=== PATIENT | female | born 1995 | race Caucasian/White ===

== ENCOUNTER 2020-08-23 11:23 | Emergency (ER) | payer OTHER, SELFPAY ==
--- NOTE | ~2020-08-23 | CT_ITS ---
EXAMINATION: CT ABDOMEN AND PELVIS WITH CONTRAST CLINICAL INFORMATION: Left lower quadrant abdominal pain with watery diarrhea for one to 2 months COMPARISON: Abdominal MRI 03/01/2014, abdominal CT 10/25/2011 TECHNIQUE: Multidetector volumetric images were obtained from the superior aspect of the liver through the pubic symphysis following administration 85 mL of Omnipaque 350 intravenous contrast. Sagittal and coronal reformatted images were obtained on the technologist's workstation. Oral contrast: No This CT examination was performed using dose optimization techniques as appropriate, variously including the following: *Automated exposure control *Adjustment of mA and/or kV according to patient size (this includes techniques or standardized protocols for targeted exams where dose is matched to indication/reason for exam; i.e. extremities or head) *Use of iterative reconstruction technique DLP: 284 mGy-cm FINDINGS: LUNG BASES: The visualized lung bases are unremarkable. LIVER, GALLBLADDER, AND BILIARY TREE: The liver is normal in size, shape, and attenuation. No focal hepatic lesion or biliary ductal dilatation is present. Status post cholecystectomy. There is a clip in the presacral recess, likely a dropped cholecystectomy clip. PANCREAS: Unremarkable. SPLEEN: Unremarkable. ADRENAL GLANDS: Unremarkable. KIDNEYS AND URETERS: The kidneys are normal in size, shape, and attenuation. No hydronephrosis, hydroureter, or calculi seen. No perinephric stranding. Few scattered tiny well-defined renal cortical hypodensities, a nonspecific finding but statistically most likely representing renal cysts. BLADDER: Unremarkable. GASTROINTESTINAL TRACT: The small and large bowel are unremarkable. The appendix is unremarkable. ABDOMINAL WALL: No significant hernia is appreciated. LYMPH NODES: No lymphadenopathy within the abdomen or pelvis by CT criteria. VASCULAR: No abdominal aortic aneurysm. The IVC is singular and right-sided. Large dilated gonadal veins bilaterally with periuterine varicosities, left greater than right. PELVIC VISCERA: The uterus is retroflexed with prominent periuterine varicosities. OSSEOUS STRUCTURES: No acute or suspicious osseous abnormality. CT/CT abdomen pelvis w con IMPRESSION: 1. No evidence of acute abnormality within the abdomen or pelvis. 2. Markedly dilated gonadal veins bilaterally with prominent periuterine varices, left greater than right. This can be a source of chronic pelvic pain, associated with pelvic congestion syndrome. This can be treated minimally invasively with coil embolization by interventional radiology. 3. Cholecystectomy.
[2020-08-23 11:45] VITALS: BP 99/66; PULSE 98; RESP 18; TEMP 36.4; O2SAT 100; BMI 18.8
--- NOTE | 2020-08-23 12:45 | ED.NAVMDI ---
HPI - Nausea/Vomiting/Diarrhea General Chief complaint: Nausea/Vomiting/Diarrhea Stated complaint: DIARRHEA Time Seen by Provider: 08/23/20 11:35 Source: patient Mode of arrival: ambulatory Limitations: no limitations History of Present Illness HPI Narrative: 25-year-old female with no significant past medical history with a past surgical history of a cholecystectomy presenting to the ED with complaints of watery diarrhea for the past 2 months with lower abdominal pain with associated nausea no vomiting. Patient reports she is having approximately 4-5 stools daily. Denies any fevers, chills, chest pain, shortness of breath, back pain, hematuria, dysuria, abnormal vaginal discharge, black or bloody stools or constipation. Denies recent travel or sick contacts. Denies recent antibiotic usage or hospitalizations. MD elicited complaint: nausea, diarrhea and abdominal pain Onset (ago): month(s) (Daily for the past 2 months) Description of diarrhea: mucus and watery Associated nausea: Yes Associated abdominal pain: Yes Location of pain: other (Lower abdomen) Pain consistency: intermittent Severity: mild Quality: cramping Exacerbating factors: bowel movement Relieving factors: none Associated symptoms: nausea/vomiting Treatment prior to arrival: none Related Data Previous Rx's Medication Instructions Recorded nitrofurantoin monohyd/m-cryst 100 mg PO BID 7 Days #14 cap 08/23/20 [Macrobid] Allergies Allergy/AdvReac Type Severity Reaction Status Date / Time No Known Allergies Allergy Unverified 01/10/20 16:54 [No Known Allergies*] Review of Systems Review of Systems: Constitutional : No Fever, No Chills, No Night Sweats, No Fatigue, No Malaise Cardiovascular : No Chest Pain, No SOB Respiratory : No Cough, No Sputum, No Wheezing, No Dyspnea Gastrointestinal : + Nausea, + Diarrhea, + abdominal Pain, No Vomiting, No Hematochezia, No Melena Genitourinary : No irregular bleeding, No Dysuria, No Urinary Frequency, No Hematuria,No Urinary Incontinence, No Urgency, No Flank Pain Musculoskeletal : No joint pain, No Myalgias, No Joint Swelling Skin : No Skin Lesions, No rash Neuro : No Weakness, No Numbness, No Paresthesias, No Loss of Consciousness, No Dizziness, No Headache Heme/Lymph: No Lymphadenopathy Endocrine : No Temperature Intolerance Yes all other systems are reviewed and are negative Gastrointestinal: Gastrointestinal: Reports nausea PMFSH Past Medical History Attestation statement: The following information was validated with the patient. Surgical History History of cholecystectomy Social History Social History Advance Directives: No Advance Directives Information Provided: No Physical Exam Vital Signs: Vital Signs: Last Vital Signs Temp 97.6 F 08/23/20 11:45 Pulse 67 08/23/20 14:08 Resp 14 08/23/20 14:08 BP 92/54 L 08/23/20 14:08 Pulse Ox 100 08/23/20 14:08 Body Mass Index 18.8 vital signs have been reviewed as normal and appeared to be correct. Blood pressure hypotensive at 99/66. Heart rate normal. Respiration rate normal. Temperature normal. Oxygen saturation normal. Appearance: Alert. Oriented X3. No acute distress. Head: Normal external exam. Normocephalic. Eyes: PERRLA. EOMI. Conjunctiva and sclera normal. Eyelids normal. ENT: Pharynx normal. Uvula midline. Moist mucous membranes. Neck: Normal inspection. Neck supple. FROM. No adenopathy. No meningeal signs. CVS: Normal heart rate and rhythm. Heart sound normal. No murmurs noted. Pulses normal throughout. Respiratory: No respiratory distress. Painless inspiration. Breath sounds normal. No wheezes/rales/rhonchi noted. Chest nontender. No accessory muscle usage noted or decreased air movement noted. Abdomen: Soft and mild tenderness in the lower abdomen. Nondistended. No guarding. No rigidity. Bowel sounds normal in all 4 quadrants. No distention noted. No organomegaly noted. No visible injury noted. No rebound tenderness. Negative Rovsing sign. Negative obturator's sign. Negative psoas sign. Negative Mckeon sign. Back: No CVA tenderness. Full range of motion noted. Skin: Skin warm and dry. Normal skin color. Normal skin turgor. No rashes/lesions/lacerations noted. Extremities: Extremities exhibit normal range of motion. Extremities nontender. Neuro: Oriented X 3. No motor deficit. No sensory deficit. Reflexes normal. Normal steady gait. Course Course Course Narrative: 16pm - labs reviewed and patient with mild elevation in alkaline phosphate 128 otherwise all other labs are within normal limits. UA positive for nitrates. UHCG is negative for . - CT scan of abdomen and pelvis revealed IMPRESSION: 1. No evidence of acute abnormality within the abdomen or pelvis. 2. Markedly dilated gonadal veins bilaterally with prominent periuterine varices, left greater than right. This can be a source of chronic pelvic pain, associated with pelvic congestion syndrome. This can be treated minimally invasively with coil embolization by interventional radiology. 3. Cholecystectomy. - therefore will DC home with antibiotics for UTI and instructions to follow-up with OBGYN. Patient understands agrees with this plan. MDM - Nausea/Vomiting/Diarrhea MDM Narrative Medical decision making narrative: 12pm - 25-year-old female presenting to the ED with complaints of diarrhea for the past 2 months with associated nausea and lower abdominal pain. Denied any other symptoms complaints or concerns at this time. On exam patient has mild suprapubic abdominal tenderness. No distension. Not consistent with acute abdomen. No CVA tenderness is noted. - will obtain labs, UA, UHCG, CT scan of abdomen pelvis with IV contrast then possibly test the patient's stool for C diff if she has a bowel movement here then re-evaluate. Medical Records Attestation: I reviewed the patient's medical records. Lab Data Attestation: I reviewed the patient's lab results. Result diagrams: 08/23/20 12:43 08/23/20 12:43 Labs: Lab Results 08/23/20 08/23/20 08/23/20 Range/Units 12:43 12:43 12:43 WBC 9.0 (4.8-10.8) X10*3/uL RBC 4.75 (4.20-5.50) X10*6/uL Hgb 14.1 (12.0-16.0) g/dl Hct 41.6 (37-47) % MCV 87.6 (80-98) fL MCH 29.7 (27.0-33.0) pg MCHC 33.9 (31.0-35.0) g/dl RDW 12.3 (11.0-16.0) % Plt Count 266 (160-400) X10*3/uL MPV 10.4 (9.4-12.3) fL Immature Gran % (Auto) 0.2 (0.0-0.4) % Neut % (Auto) 48.9 (45-73) % Lymph % (Auto) 34.4 (20-40) % [place] % (Auto) 10.2 (2-11) % Eos % (Auto) 5.6 H (0-4) % Baso % (Auto) 0.7 (0-2) % Lymph # (Auto) 3.1 (1.2-4.9) X10*3/uL [place] # (Auto) 0.9 (0.1-1.2) X10*3/uL Eos # (Auto) 0.5 H (0.0-0.4) X10*3/uL Baso # (Auto) 0.1 (0.0-0.2) X10*3/uL Abs Immat Gran (auto) 0.02 (0.00-0.03) X10*3/uL Absolute Neuts (auto) 4.4 (2.0-8.3) X10*3/uL Absolute Nucleated RBC 0.000 (0.0-0.012) X10*3/uL Nucleated RBC % (auto) 0.0 (0.0-0.2) /100WBC PT 13.9 H (10.8-13.0) SEC INR 1.2 H (0.9-1.1) Sodium (135-145) mmol/L Potassium (3.3-5.1) mmol/L Chloride (96-108) mmol/L Carbon Dioxide (22-29) mmol/L Anion Gap (12-20) BUN (9-16) mg/dL Creatinine (0.5-1.4) mg/dL Estim Creat Clear Calc Estimated GFR Random Glucose (60-115) mg/dL Calcium (8.4-10.2) mg/dL Magnesium 2.0 (1.6-2.6) mg/dL Total Bilirubin 0.6 (0.0-1.0) mg/dL Direct Bilirubin 0.2 (0.0-0.5) mg/dL AST 18 (5-31) U/L ALT 17 (0-31) U/L Alkaline Phosphatase 124 H (39-117) U/L Total Protein 7.0 (6.5-8.0) g/dL Albumin 4.4 (3.5-5.0) g/dL Lipase (8-78) U/L Urine Color Urine Appearance Urine pH (5.0-8.0) Ur Specific [place] (1.005-1.025) Urine Protein (NEG-TRACE) MG/DL Urine Glucose (UA) (NEG) MG/DL Urine Ketones (NEG) MG/DL Urine Blood (NEG) Urine Nitrite (NEG) Ur Leukocyte Esterase (NEG) Urine RBC (0) /HPF Urine WBC (0-4) /HPF Ur Squamous Epith Cells /LPF Urine Bacteria /LPF Urine Mucus /LPF Urine Test (NEGATIVE) 08/23/20 08/23/20 08/23/20 Range/Units 12:43 14:11 14:11 WBC (4.8-10.8) X10*3/uL RBC (4.20-5.50) X10*6/uL Hgb (12.0-16.0) g/dl Hct (37-47) % MCV (80-98) fL MCH (27.0-33.0) pg MCHC (31.0-35.0) g/dl RDW (11.0-16.0) % Plt Count (160-400) X10*3/uL MPV (9.4-12.3) fL Immature Gran % (Auto) (0.0-0.4) % Neut % (Auto) (45-73) % Lymph % (Auto) (20-40) % [place] % (Auto) (2-11) % Eos % (Auto) (0-4) % Baso % (Auto) (0-2) % Lymph # (Auto) (1.2-4.9) X10*3/uL [place] # (Auto) (0.1-1.2) X10*3/uL Eos # (Auto) (0.0-0.4) X10*3/uL Baso # (Auto) (0.0-0.2) X10*3/uL Abs Immat Gran (auto) (0.00-0.03) X10*3/uL Absolute Neuts (auto) (2.0-8.3) X10*3/uL Absolute Nucleated RBC (0.0-0.012) X10*3/uL Nucleated RBC % (auto) (0.0-0.2) /100WBC PT (10.8-13.0) SEC INR (0.9-1.1) Sodium 140 (135-145) mmol/L Potassium 4.2 (3.3-5.1) mmol/L Chloride 107 (96-108) mmol/L Carbon Dioxide 21 L (22-29) mmol/L Anion Gap 16 (12-20) BUN 15 (9-16) mg/dL Creatinine 0.80 (0.5-1.4) mg/dL Estim Creat Clear Calc 68.0 Estimated GFR > 60 Random Glucose 73 (60-115) mg/dL Calcium 9.3 (8.4-10.2) mg/dL Magnesium (1.6-2.6) mg/dL Total Bilirubin 0.6 (0.0-1.0) mg/dL Direct Bilirubin (0.0-0.5) mg/dL AST 18 (5-31) U/L ALT 15 (0-31) U/L Alkaline Phosphatase 128 H (39-117) U/L Total Protein 7.2 (6.5-8.0) g/dL Albumin 4.5 (3.5-5.0) g/dL Lipase 28 (8-78) U/L Urine Color YELLOW Urine Appearance HAZY Urine pH 6.0 (5.0-8.0) Ur Specific [place] 1.025 (1.005-1.025) Urine Protein NEG (NEG-TRACE) MG/DL Urine Glucose (UA) 100 H (NEG) MG/DL Urine Ketones 5 (NEG) MG/DL Urine Blood NEG (NEG) Urine Nitrite POS H (NEG) Ur Leukocyte Esterase NEG (NEG) Urine RBC 0 (0) /HPF Urine WBC 1-4 (0-4) /HPF Ur Squamous Epith Cells 1+ /LPF Urine Bacteria 2+ /LPF Urine Mucus 3+ /LPF Urine Test NEGATIVE (NEGATIVE) Imaging Data CT scan of abdomen pelvis with IV contrast: Attestation: I personally reviewed and interpreted this imaging study as follows: Radiologist's impression: IMPRESSION: 1. No evidence of acute abnormality within the abdomen or pelvis. 2. Markedly dilated gonadal veins bilaterally with prominent periuterine varices, left greater than right. This can be a source of chronic pelvic pain, associated with pelvic congestion syndrome. This can be treated minimally invasively with coil embolization by interventional radiology. 3. Cholecystectomy. Discharge Plan Discharge Clinical Impression: UTI (urinary tract infection), Diarrhea, Pelvic congestion syndrome Patient Disposition: Home, Self-Care Instructions: Urinary Tract Infection in Women (ED) Additional Instructions: I gave you an outpatient lab slip for C diff culture please when you have this watery diarrhea placed in the cup and bring it back to the hospital with the slip that I gave you above. Follow-up with OBGYN I gave you the number below and return if any new or worsening symptoms. Prescriptions: New nitrofurantoin monohyd/m-cryst [Macrobid] 100 mg capsule 100 mg PO BID 7 Days Qty: 14 RF: 0 Referrals: Karla Turcios MD [Physician] - 2 days Print Language: Maltese
[2020-08-23 12:50] LABS: MANUAL DIFF FLAG NO
[2020-08-23 12:51] LABS: Basophils Absolute Auto 0.1 X10*3/uL (0.0-0.2); Basophils Percent Auto 0.7 % (0-2); Eosinophils Absolute Auto 0.5 X10*3/uL (0.0-0.4); Eosinophils Percent Auto 5.6 % (0-4); Hematocrit 41.6 % (37-47); Hemoglobin 14.1 g/dl (12.0-16.0); Imm Gran Abs Auto 0.02 X10*3/uL (0.00-0.03); Imm Gran Pct Auto 0.2 % (0.0-0.4); Lymphocytes Absolute Auto 3.1 X10*3/uL (1.2-4.9); Lymphocytes Percent Auto 34.4 % (20-40); Mean Corpuscular HGB Conc 33.9 g/dl (31.0-35.0); Mean Corpuscular Hemoglobin 29.7 pg (27.0-33.0); Mean Corpuscular Volume 87.6 fL (80-98); Mean Platelet Volume 10.4 fL (9.4-12.3); Monocytes Absolute Auto 0.9 X10*3/uL (0.1-1.2); Monocytes Percent Auto 10.2 % (2-11); Neutrophils Absolute Auto 4.4 X10*3/uL (2.0-8.3); Neutrophils Percent Auto 48.9 % (45-73); Platelet Count 266 X10*3/uL (160-400); Red Blood Count 4.75 X10*6/uL (4.20-5.50); Red Cell Distribution Width 12.3 % (11.0-16.0)
[2020-08-23 12:57] LABS: INTERNATIONAL NORM RATIO 1.2 (0.9-1.1); Prothrombin Time 13.9 SEC (10.8-13.0)
[2020-08-23] MEDS: 0.9 % Sodium Chloride 1,000 ML 999 ML IVCONT (13:01)
[2020-08-23 13:17] LABS: Alanine Aminotransferase 17 U/L (0-31); Albumin Level 4.4 g/dL (3.5-5.0); Alkaline Phosphatase 124 U/L (39-117); Aspartate Amino Transferase 18 U/L (5-31); Bilirubin Direct 0.2 mg/dL (0.0-0.5); Bilirubin Total 0.6 mg/dL (0.0-1.0)
[2020-08-23 13:19] LABS: Alanine Aminotransferase 15 U/L (0-31); Albumin Level 4.5 g/dL (3.5-5.0); Alkaline Phosphatase 128 U/L (39-117); Anion Gap 16 (12-20); Aspartate Amino Transferase 18 U/L (5-31); Bilirubin Total 0.6 mg/dL (0.0-1.0); Blood Urea Nitrogen 15 mg/dL (9-16); Calcium 9.3 mg/dL (8.4-10.2); Carbon Dioxide 21 mmol/L (22-29); Chloride 107 mmol/L (96-108); Estimated Glomerular Filt Rate > 60; Glucose Random 73 mg/dL (60-115); Lipase 28 U/L (8-78); Potassium 4.2 mmol/L (3.3-5.1); Sodium 140 mmol/L (135-145); Total Protein 7.2 g/dL (6.5-8.0)
[2020-08-23 14:08] VITALS: BP 92/54; PULSE 67; RESP 14; O2SAT 100
[2020-08-23 14:19] LABS: Glucose Urine UA 100 MG/DL (NEG); Leukocyte Esterase Urine NEG (NEG); Nitrite Urine POS (NEG); Specific Gravity - Urine 1.025 (1.005-1.025); UACC Culture Trigger YES; Urine Blood NEG (NEG); Urine Ketones 5 MG/DL (NEG); Urine Protein NEG (NEG-TRACE)
[2020-08-23 14:21] LABS: UPreg QC Valid YES; Urine Pregnancy NEGATIVE (NEGATIVE)
[2020-08-23 14:22] LABS: Appearance Urine HAZY; Color Urine YELLOW
[2020-08-23 14:29] LABS: Bacteria Urine 2+ /LPF; Mucus Urine 3+ /LPF; RBC Urine 0 /HPF (0); Squamous Epithelial Cell Urine 1+ /LPF
[2020-08-23] MEDS: iohexoL 350 MG/ML 100 ML INFUS..BTL IV (14:58)
[2020-08-23 16:02] VITALS: BP 110/79; PULSE 80; RESP 20; TEMP 36.7; O2SAT 99
== END 2020-08-23 16:36 | disposition home or self-care (01) ==
PROVIDERS: Physician Assistant Medical; Emergency Provider Emergency Medicine
DX: N39.0 Urinary tract infection, site not specified (principal); R19.7 Diarrhea, unspecified; R25.2 Cramp and spasm; N94.89 Other specified conditions associated with female genital organs and menstrual cycle; Z79.899 Other long term (current) drug therapy
CPT/HCPCS: 36415; 74177; 80053; 80076; 81001; 81003; 81025; 82248; 83690; 83735; 85025; 85610; 87086; 87088; 87186; 99284; Q9967

== ENCOUNTER 2020-08-24 11:53 | Outpatient (REF) | payer OTHER, SELFPAY | END 2020-08-24 11:54 | disposition home or self-care (01) | LOC: HO.LNP 11:53 | PROVIDERS: Visit Provider Physician Assistant Medical | DX: Z13.89 Encounter for screening for other disorder (principal) ==

== ENCOUNTER 2021-08-31 15:26 | Emergency (ER) | payer OTHER, SELFPAY ==
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
[2021-08-31 16:12] VITALS: BP 129/84; PULSE 108; RESP 18; TEMP 36.6; O2SAT 99; BMI 19.8
[2021-08-31 18:22] VITALS: BP 109/73; PULSE 86; RESP 16; TEMP 36.9; O2SAT 100
[2021-08-31] MEDS: Acetaminophen 325 MG TABLET 975 MG PO (19:00)
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
== END 2021-08-31 20:26 | disposition home or self-care (01) ==
PROVIDERS: Emergency Provider Internal Medicine
DX: S80.11XA Contusion of right lower leg, initial encounter (principal); M54.2 Cervicalgia; V49.40XA Driver injured in collision with unspecified motor vehicles in traffic accident, initial encounter; Y93.9 Activity, unspecified; Y92.410 Unspecified street and highway as the place of occurrence of the external cause; Y99.9 Unspecified external cause status
CPT/HCPCS: 70450; 72125; 73590; 99284

== ENCOUNTER → 2022-01-06 14:48 | Outpatient (BNVA) | payer OTHER, SELFPAY | PROVIDERS: Visit Provider Physician Assistant Medical | DX: T65.891A Toxic effect of other specified substances, accidental (unintentional), initial encounter (principal); L24.5 Irritant contact dermatitis due to other chemical products | CPT/HCPCS: 99202 ==

== ENCOUNTER → 2022-01-11 11:39 | Outpatient (BNVA) | payer OTHER, SELFPAY | PROVIDERS: Visit Provider Physician Assistant Medical | DX: T65.891A Toxic effect of other specified substances, accidental (unintentional), initial encounter (principal); L24.5 Irritant contact dermatitis due to other chemical products | CPT/HCPCS: 99213 ==

== ENCOUNTER → 2022-01-18 13:10 | Outpatient (BNVA) | payer OTHER, SELFPAY | PROVIDERS: Visit Provider Internal Medicine | DX: T65.891A Toxic effect of other specified substances, accidental (unintentional), initial encounter (principal); L24.5 Irritant contact dermatitis due to other chemical products | CPT/HCPCS: 99213 ==

== ENCOUNTER 2022-02-10 17:49 | Emergency (ER) | payer OTHER, SELFPAY ==
--- NOTE | ~2022-02-10 | XR_ITS ---
EXAMINATION: XR CHEST CLINICAL INFORMATION: Cough COMPARISON: RIBS and chest 11/21/2012 TECHNIQUE: Frontal view of the chest was obtained. FINDINGS: No significant abnormality is noted involving the heart, lungs, mediastinum, bony thorax or soft tissues. XR/XR chest 1V IMPRESSION: Unremarkable examination.
[2022-02-10 17:58] VITALS: BP 114/84; PULSE 106; RESP 16; TEMP 36.2; O2SAT 97; BMI 19.4
[2022-02-10 18:38] LABS: COVID-19 Test Negative (Negative); IDNOW Serial# 55D5AD1C; IDNOW Serial# 9DB6401D; Influenza A Negative (Negative); Influenza B2 Negative (Negative)
--- NOTE | 2022-02-10 20:01 | ED.SOB ---
HPI - SOB/Dyspnea General Chief Complaint: Dyspnea Stated Complaint: sob, cough Time Seen by Provider: 02/10/22 20:00 Source: patient Mode of arrival: ambulatory Limitations: no limitations History of Present Illness HPI Narrative: 18-year-old female presents to the ER for evaluation of 4 days of cough and shortness of breath that has been worsening. She states her son had a slight cough a few days ago but it was much different from hers and is already self resolved. She states the cough has been keeping her up at night and she bringing up some white phlegm. She feels very fatigued and weak. She is eating and drinking normally but generally feels unwell. She denies any fevers or chills but does have some body aches. She is intermittently nauseous but no vomiting or diarrhea. MD elicited complaint: shortness of breath and cough Onset (ago): day(s) (4) Context: recent illness Timing: constant and progressively worsening Severity: moderate Exacerbating factors: lying flat, exertion and coughing Relieving factors: rest and medication Associated symptoms: cough, wheezing, chest congestion and lightheadedness Treatment prior to arrival: none Related Data Home oxygen amount: none Previous Rx's Medication Instructions Recorded nitrofurantoin 100 mg PO BID 7 days #14 caps 08/23/20 monohydrate/macrocrystals 100 mg capsule (Macrobid) naproxen 500 mg tablet 500 mg PO BID PRN pain 10 days #20 08/31/21 tabs albuterol sulfate 90 mcg/actuation 1 inh inhalation QID PRN shortness 02/10/22 aerosol inhaler of breath or wheezing #6.7 grams azithromycin 250 mg tablet See Rx Instructions PO .COMPLEX #6 02/10/22 (Zithromax Z-Karlo) tabs hydrocodone-homatropine 5 mg-1.5 5 ml PO Q6H PRN cough #60 mL 02/10/22 mg/5 mL (5 mL) oral syrup (Hycodan) prednisone 20 mg tablet 40 mg PO DAILY #10 tabs 02/10/22 Allergies Allergy/AdvReac Type Severity Reaction Status Date / Time No Known Allergies Allergy Verified 08/31/21 16:16 [No Known Allergies*] Review of Systems Review of Systems: Constitutional: No Fever, No Chills ENT/Mouth: No sore throat, No Rhinorrhea, No Swallowing Difficulty Eyes: No Eye Pain, No Swelling, No Redness Cardiovascular: No Chest Pain, + SOB, No Orthopnea, No Edema Respiratory: + Cough, + Sputum, +Wheezing, + dyspnea Gastrointestinal: No Nausea, No Vomiting, No Diarrhea, No abdominal Pain Genitourinary: No Dysuria, No Urinary Frequency Musculoskeletal: No joint pain, + Myalgias Skin: No Skin Lesions, No rash Neuro: No Weakness, No Numbness, No Dizziness, + Headache Heme/Lymph: No Lymphadenopathy [facility] Past Medical History Surgical History History of cholecystectomy Social History Social History Advance Directives: No Physical Exam Vital Signs: Vital Signs: Last Vital Signs Temp 97.1 F 02/10/22 17:58 Pulse 106 H 02/10/22 20:27 Resp 16 02/10/22 20:27 BP 114/84 02/10/22 17:58 Pulse Ox 97 02/10/22 17:58 O2 Del Method 02/10/22 17:58 BMI result Body Mass Index 19.4 Appearance: Alert. Oriented X3. Appears ill but nontoxic. Eyes: Pupils equal, round and reactive to light. ENT: Pharynx normal. Neck: Normal inspection. Neck supple. CVS: Normal heart rate and rhythm. Pulses normal. Respiratory: No respiratory distress. Breath sounds with diffuse inspiratory and expiratory wheezes throughout. Able to speak in complete sentences. Abdomen: Soft and nontender. +BS x4 Skin: Skin warm and dry. Normal skin color. Normal skin turgor. No rashes. Extremities: No lower extremity edema. No calf tenderness. Neuro: Oriented X 3. Grossly normal, nonfocal Course Course Course Narrative: 26-year-old female with no significant medical history presents to the ER with 4 days of worsening cough and shortness of breath. On examination she has diffuse wheezes throughout. She is not working to breathe and is oxygenating well. No history of asthma. Most likely reactive airway disease. Will check chest x-ray, COVID swab, flu swab. Will treat her with prednisone and albuterol nebulizer now and reassess. Reevaluation(s) Reevaluation #1: Significant improvement in aeration after nebulizer treatment. Chest x-ray is clear and viral swabs are negative. Most likely another viral etiology of her symptoms. She is stable for discharge home with antitussive, prednisone, p.r.n. albuterol and supportive care. Stable for discharge home. Work note provided per request. MDM - SOB/Dyspnea Lab Data Labs: Lab Results 02/10/22 02/10/22 Range/Units 18:07 18:07 COVID-19 (MATA) Negative (Negative) COVID-19 Clin Com See Note Influenza Type A ([facility]) Negative (Negative) Influenza Type B ([facility]INO) Negative (Negative) Influenza A & B Note See Note Discharge Plan Discharge Clinical Impression: Viral URI with cough Patient Disposition: Home, Self-Care Instructions: Upper Respiratory Infection (ED) Additional Instructions: Your chest x-ray was negative for pneumonia. You tested negative for COVID-19 and influenza A& B. Given the wheezing on exam today recommend treatment with prednisone 40 mg per day for the next 5 days, start taking 1st thing in the morning. Use the prescribed inhaler as needed for shortness of breath and wheezing. Take the prescribed cough medication as needed, do not drive after taking this medication can make you sleepy. Recommend taking the prescribed antibiotic for your lungs, it will help decrease the inflammation. Rest and stay hydrated. Recommend wrzj-[id number] cold and flu medications as needed for your symptoms. If you develop new or worsening symptoms call 911 or come back to the ER for further evaluation. Prescriptions: New prednisone 20 mg tablet 40 mg PO DAILY Qty: 10 0RF azithromycin [Zithromax Z-Karlo] 250 mg tablet See Rx Instructions .ROUTE .COMPLEX Qty: 6 0RF Rx Instructions: take 500 mg today (day 1), then 250 mg for 4 days (days 2-5) albuterol sulfate 90 mcg/actuation HFA aerosol inhaler 1 inh inhalation QID PRN (Reason: shortness of breath or wheezing) Qty: 6.7 0RF hydrocodone-homatropine [Hycodan] 5-1.5 mg/5 mL (5 mL) syrup 5 ml PO Q6H PRN (Reason: cough) Qty: 60 0RF Rx Instructions: Partial Fill upon patient request. No Action nitrofurantoin monohyd/m-cryst [Macrobid] 100 mg capsule 100 mg PO BID 7 Days Qty: 14 0RF Rx Instructions: must administer with a meal/food naproxen 500 mg tablet 500 mg PO BID PRN (Reason: pain) 10 Days Qty: 20 0RF Stand Alone Forms: Work/School Release
[2022-02-10] MEDS: Albuterol Sulfate 2.5 MG, Albuterol Sulfate (0.083%) 2.5 MG 5 MG INHALE (20:23)
[2022-02-10 20:27] VITALS: PULSE 106; RESP 16; O2SAT 97
[2022-02-10] MEDS: predniSONE 5 MG TABLET 40 MG PO (20:27)
[2022-02-10] MEDS: guaiFENesin DM 200/20/10 ML 10 ML SYRUP PO (20:27)
== END 2022-02-10 21:28 | disposition home or self-care (01) ==
PROVIDERS: Emergency Provider Emergency Medicine
DX: J06.9 Acute upper respiratory infection, unspecified (principal); R05.9 Cough, unspecified; Z20.822 Contact with and (suspected) exposure to COVID-19
CPT/HCPCS: 71045; 87502; 87635; 94640; 99283; 99284

== ENCOUNTER → 2022-08-27 16:05 | Outpatient (BNVA) | payer OTHER, SELFPAY | PROVIDERS: Visit Provider Physician Assistant | DX: L25.9 Unspecified contact dermatitis, unspecified cause (principal) | CPT/HCPCS: 99203 ==

== ENCOUNTER 2023-09-27 23:43 | Emergency (ER) | payer BC, SELFPAY ==
[2023-09-27 23:49] VITALS: BP 117/79; PULSE 100; RESP 17; TEMP 36.5; O2SAT 100; BMI 19.9
--- NOTE | 2023-09-28 01:11 | ED_ITS ---
HPI - Female Genitourinary General Chief complaint: Urogenital-Female Stated complaint: ? UTI Time Seen by Provider: 09/28/23 01:04 Source: patient Mode of arrival: ambulatory Limitations: no limitations History of Present Illness ED Provider: Dr. Mamie Greene HPI Narrative: Patient comes to the emergency room complaining of dysuria and suprapubic pressure for 1 week. Patient denies fever chills, no flank pain. Patient states that she tried managing the UTI at home with [id number] medications but did not have any effect. Related Data Previous Rx's ?Medication ?Instructions ?Recorded nitrofurantoin 100 mg PO BID 7 days #14 caps 08/23/20 monohydrate/macrocrystals 100 mg capsule (Macrobid) naproxen 500 mg tablet 500 mg PO BID PRN pain 10 days #20 08/31/21 tabs albuterol sulfate 90 mcg/actuation 1 inh inhalation QID PRN shortness 02/10/22 aerosol inhaler of breath or wheezing #6.7 grams azithromycin 250 mg tablet See Rx Instructions PO .COMPLEX #6 02/10/22 (Zithromax Z-Karlo) tabs hydrocodone-homatropine 5 mg-1.5 5 ml PO Q6H PRN cough #60 mL 02/10/22 mg/5 mL (5 mL) oral syrup (Hycodan) prednisone 20 mg tablet 40 mg (2 x 20 mg) PO DAILY #10 tabs 02/10/22 triamcinolone acetonide 0.1 % 1 appl topical BID #30 grams 08/27/22 topical ointment phenazopyridine 100 mg tablet 100 mg PO TID 6 doses #6 tabs 09/28/23 sulfamethoxazole 800 1 tab PO BID #6 tabs 09/28/23 mg-trimethoprim 160 mg tablet (Bactrim DS) Allergies Allergy/AdvReac Type Severity Reaction Status Date / Time No Known Allergies Allergy Verified 09/27/23 23:53 [No Known Allergies*] Review of Systems Review of Systems: Constitutional : No Weight loss, No Fever, No Chills, No Night Sweats, No Fatigue, No Malaise ENT/Mouth : No Hearing loss, No Ear Pain, No Nasal Congestion, No Sinus Pain, No Hoarseness, No sore throat, No Rhinorrhea, No Swallowing Difficulty Eyes: No Eye Pain, No Swelling, No Redness, No Foreign Body, No Discharge, No Vision Changes Cardiovascular : No Chest Pain, No SOB, No Dyspnea on Exertion, No Orthopnea, No Edema, No Palpitations Respiratory : No Cough, No Sputum, No Wheezing, No Smoke Exposure, No Dyspnea Gastrointestinal : No Nausea, No Vomiting, No Diarrhea, No Constipation, No abdominal Pain, No Hematochezia, No Melena Genitourinary : Complaining of suprapubic pain worse with urination, no flank pain Musculoskeletal : No joint pain, No Myalgias, No Joint Swelling Skin : No Skin Lesions, No rash Neuro : No Weakness, No Numbness, No Paresthesias, No Loss of Consciousness, No Dizziness, No Headache Psych : No Anxiety/Panic, No Depression, No SI/HI/AH/VH, No Social Issues, Heme/Lymph: No Bruising, No Bleeding,No Lymphadenopathy Endocrine : No Polyuria, No Polydipsia, No Temperature Intolerance PMFSH Past Medical History Surgical History History of cholecystectomy Social History Social History Advance Directives: No Advance Directives Information Provided: Yes Do you have a plan to hurt others: No Plan Physical Exam Vital Signs: Vital Signs: Last Vital Signs Temp 97.7 F 09/27/23 23:49 Pulse 100 09/27/23 23:49 Resp 17 09/27/23 23:49 BP 117/79 09/27/23 23:49 Pulse Ox 100 09/27/23 23:49 O2 Del Method Room Air 09/27/23 23:49 BMI result Body Mass Index 19.9 Course Course Course Narrative: -patient's urinalysis pending Medical Decision Making Medical Decision Making [facility] Narrative: -my interpretation of labs: Urinalysis negative for UTI, test negative -patient received the 1st dose of antibiotics, Bactrim double strength in phenazopyridine -patient has no flank pain, no fever or chills, normal vitals, sepsis not suspected Differential Diagnosis Differential Diagnoses: The differential diagnosis associated with the presentation includes (UTI, cystitis) Lab Data [facility] Lab Attestation statement: I reviewed the patient's lab results. Labs: Lab Results 09/28/23 Range/Units 01:13 Urine Color Yellow Urine Appearance Cloudy Urine pH 5.5 (5.0-9.0) Ur Specific [place] 1.020 (1.005-1.025) Urine Protein 100 (2+) H (Neg-Trace) mg/dL Urine Glucose (UA) Negative (Negative) mg/dL Urine Ketones 80 (Negative) mg/dL Urine Blood Large (3+) H (Negative) Urine Nitrite Negative (Negative) Ur Leukocyte Esterase Moderate (2+) H (Negative) Urine Test NEGATIVE (NEGATIVE) Discharge Plan Discharge Clinical Impression: Urinary tract infection Patient Disposition: Home, Self-Care Instructions: Urinary Tract Infection in Women (ED) Additional Instructions: Please follow-up with your primary care physician tomorrow. If you have any worsening or new symptoms, please return to the emergency room or call 911 Prescriptions: New sulfamethoxazole-trimethoprim [Bactrim DS] 800-160 mg tablet 1 tab PO BID Qty: 6 0RF phenazopyridine 100 mg tablet 100 mg PO TID Qty: 6 0RF No Action nitrofurantoin monohyd/m-cryst [Macrobid] 100 mg capsule 100 mg PO BID 7 Days Qty: 14 0RF Rx Instructions: must administer with a meal/food naproxen 500 mg tablet 500 mg PO BID PRN (Reason: pain) 10 Days Qty: 20 0RF prednisone 20 mg tablet 40 mg PO DAILY Qty: 10 0RF azithromycin [Zithromax Z-Karlo] 250 mg tablet See Rx Instructions .ROUTE .COMPLEX Qty: 6 0RF Rx Instructions: take 500 mg today (day 1), then 250 mg for 4 days (days 2-5) albuterol sulfate 90 mcg/actuation HFA aerosol inhaler 1 inh inhalation QID PRN (Reason: shortness of breath or wheezing) Qty: 6.7 0RF hydrocodone-homatropine [Hycodan] 5-1.5 mg/5 mL (5 mL) syrup 5 ml PO Q6H PRN (Reason: cough) Qty: 60 0RF Rx Instructions: Partial Fill upon patient request. triamcinolone acetonide 0.1 % ointment 1 appl topical BID Qty: 30 1RF Print Language: Bahraini
[2023-09-28 01:20] LABS: UPreg QC Valid YES; Urine Pregnancy NEGATIVE (NEGATIVE)
[2023-09-28 01:44] LABS: Appearance Urine Cloudy; Color Urine Yellow; Glucose Urine UA Negative (Negative); Leukocyte Esterase Urine Moderate (2+) (Negative); Nitrite Urine Negative (Negative); PH 5.5 (5.0-9.0); UMIC TRIGGER UACC YES; Urine Blood Large (3+) (Negative); Urine Ketones 80 mg/dL (Negative); Urine Protein 100 (2+) mg/dL (Neg-Trace)
[2023-09-28 01:59] VITALS: BP 139/73; PULSE 72; RESP 16; O2SAT 99
[2023-09-28] MEDS: Sulfamethox/Trimeth 800/160 TABLET 1 TAB PO (02:03)
[2023-09-28] MEDS: Phenazopyridine HCL 100 MG TABLET PO (02:03)
[2023-09-28 02:05] LABS: Bacteria Urine 1+ (None Seen); Hyaline Casts Urine 0-2 /LPF (0-2); RBC Urine >20 /HPF (0-2); UACC Culture Trigger YES; WBC Urine >50 /HPF (0-5)
[2023-09-28 02:14] VITALS: BP 139/73; PULSE 72; RESP 16; TEMP 36.5; O2SAT 99
== END 2023-09-28 02:15 | disposition home or self-care (01) ==
PROVIDERS: Emergency Provider Emergency Medicine
DX: R30.0 Dysuria (principal); N39.0 Urinary tract infection, site not specified
CPT/HCPCS: 81001; 81025; 87086; 87088; 87186; 99283

== ENCOUNTER 2025-01-30 03:10 | Emergency (ER) | payer BC, SELFPAY ==
[2025-01-30 03:11] VITALS: BP 106/73; PULSE 90; RESP 16; TEMP 36.4; O2SAT 98; BMI 24.9
--- NOTE | 2025-01-30 03:25 | PC.NURSE ---
patient moved to ed23 from triage. DR. Stallworth made aware of sx and 29weeks . orders placed as advised by MD. pt educated on self swab BV and UA. pt verbalizes understanding and in bathroom to obtain. pt states will try for CTNG urine later.
--- OUTSIDE RECORDS SUMMARY | 2025-01-30 03:26 | XMS_ITS | Encounter Summary ---
Author Organization [facility] [place] [address] Care Team Providers Care Link Trainer Maintenance Worker Name Role Phone Ree Rodriguez MD Primary Care Provider [phone] Encounter Details Date Type Department Care Team ([facility] st Contact Info) Description 01/26/2025 Results Follow-Up [facility] - Maternity [address] [place] [address] Yusra Gaston, [facility] [address] [place] [address] Social History Tobacco Use Types Packs/Day Years Used Date Smoking Tobacco: Former Cigarettes Smokeless Tobacco: Never Alcohol Use Standard Drinks/Week Comments Not Currently 0 (1 standard drink = 0.6 oz pur e alcohol) Housing Instability Answer Date Recorde d Are you worried that in the next 2 months you may not have stable housing? No 01/16/2025 Food Access & Nutrition Answer Date Rec orded Do you have access to a vari ety of food including fruits and vegetables? Yes 01/16/2025 Access to Healthcare Answer Date Record ed Within the last 3 months, ho w many times did you visit the emergency department for your medical care? 2 01/16/2025 Health Literacy Answer Date Recorded How often do you need to hav e someone help you when you read instructions, pamphlets, or other written material from your doctor or pharmacy? Never 08/21/2024 Caregiver: How often do you need to have someone help you when you read instructions, pamphlets, or other written material from your doctor or pharmacy? Not on file 08/21/2024 Financial Risk Answer Date Recorded How hard is it for you to pa y for the very basics like food, housing, medical care, and air conditioning / heating? Not very hard 01/16/2025 Transportation Answer Date Recorded Has the lack of transportati on kept you from meetings, work, or from getting things needed for daily living? No Has the lack of transportati on kept you from medical appointments or from getting medications? No 01/16/2025 Social Isolation Answer Date Recorded How often do you feel lonely or isolated from th ose around you? Rarely 01/16/2025 Food Risk Answer Date Recorded Within the past 12 months we worried whether our food would run out before we got money to buy more. Never true 01/16/2025 Within the past 12 months th e food we bought just didn't last and we didn't have money to get more. Never true 01/16/2025 Dependent Care Answer Date Recorded Do you need help finding or paying for care for your loved ones. For example, early childhood lead teacher or elderly care for an older adult? No 08/21/2024 Education Answer Date Recorded Do you think completing more education or training, like finishing a GED, going to college, or learning a trade, would be helpful for you? Yes 08/21/2024 Employment and Income Answer Date Recor ded During the last four weeks, have you been actively looking for work? No 08/21/2024 Living Situation Answer Date Recorded What is your living situation? Unrecognized valu e 08/21/2024 Interpersonal Safety Answer Date Record ed Physical Abuse Unrecognized value 01/16/2025 Verbal Abuse Unrecognized value 01/16/2025 Estimated Date of Delivery Comme nts Yes 04/15/2025 Based on last me nstrual period of 07/09/2024 (Exact Date) Sex and Gender Information Value Date Recorded Sex Assigned at Female 01/16/2025 7:10 AM EDT Legal Sex Female 3:19 AM EST Gender Identity Female 01/16/2025 7:10 AM EDT Sexual Orientation Straight 01/16/2025 7: 10 AM EDT documented as of this encounter Ordered Prescriptions Prescription Sig Dispense Quantity Refills Last Filled Start Date End Date ferrous gluconate (FERGON) 324 mg (38 mg iron) tablet Take 1 tablet (324 mg total) by mouth every other day. 15 each 3 01/26/2025 documented in this encounter Progress Notes * Alma Vasquez - 01/28/2025 10:37 AM EDT Call returned * Casandra Espinoza MA - 01/28/2025 10:30 AM EDT Left message for patient. * Casandra Espinoza MA - 01/28/2025 10:29 AM EDT ----- Message from Franci Gaston CNM sent at 01/26/2025 3:04 PM EDT ----- Anemia in preg, iron supplements sent to take every other day on empty stomach with OJ. 1hr GTT elevated, pt should complete 3hr GTT, order placed. Treponema neg Yusra Gaston CNM ----- Message ----- From: Lab, Background User Sent: 01/25/2025 12:22 PM EDT To: Yusra Gaston CNM documented in this encounter Plan of Treatment Upcoming Encounters Date Type Department Care Team (Late st Contact Info) Description 02/19/2025 8:45 AM EDT Routine Obstetrics and Gynecology - [address] [phone] Yusra Gaston CNM [address], [place] 03/05/2025 9:00 AM EST Routine Obstetrics and Gynecology - [address] [phone] Yusra Gaston CNM [address], [place] 03/20/2025 8:00 AM EST Routine Obstetrics and Gynecology - [address] [phone] Otis Jacinto, [address] [address] 03/27/2025 8:00 AM EST Routine Obstetrics and Gynecology - [address] [phone] Otis Jacinto, [address] [address] 04/04/2025 8:30 AM EST Routine Obstetrics and Gynecology - [address] [phone] Andie Espinosa [address] 04/10/2025 8:00 AM EST Routine Obstetrics and Gynecology - [address] [phone] Otis Jacinto [address] [address] 04/17/2025 8:00 AM EST Routine Obstetrics and Gynecology - [address] [phone] Otis Jacinto [address] [address] Scheduled Orders Name Type Priority Associated Diagnoses Orde r Schedule Glucose tolerance, 3 hr gestation Lab Routine Elevated glucose tolerance test 1 Occurrences starting 01/26/2025 until 01/26/2026 documented as of this encounter Visit Diagnoses Diagnosis Anemia during in third trimester- Primary Elevated glucose tolerance test Impaired glucose tolerance test documented in this encounter Additional Health Concerns Assessment Noted Time PHQ-9 Depression Total Score: 0 01/23/20 25 1:16 AM EDT documented as of this encounter Care Teams Link Trainer Maintenance Worker Relationship Specialty Start Date End Date Jennifer, Piyali, MD [address] [facility] [place] [address] PCP - General Internal Medicine 08/25/20 documented as of this encounter
--- OUTSIDE RECORDS SUMMARY | 2025-01-30 03:26 | XMS_ITS | Encounter Summary ---
Author Organization [facility] [place] [address] Care Team Providers Care Plate Mill Hand Name Role Phone Ree Rodriguez MD Primary Care Provider [phone] Encounter Details Date Type Department Care Team (Late st Contact Info) Description 01/16/2025 Hospital Encounter [facility] [address] [place] [id number] Jace Srivastava MD [address] [place] [phone] Social History Tobacco Use Types Packs/Day Years [...] care for your loved ones. For example, child caregiver private home or elderly care for an older adult? [...] AM EDT documented as of this encounter Functional Status * Calculated C-SSRS Risk Score (Lifetime/Recent) Answer Date of Assessment Author No Risk Indicated 01/16/2025 4:35 AM EDT Emelia Kowalski, RN * [place] Suicide Severity Rating Scale (Screener/Recent Self-Report) Question Answer Date of Assessment Author 1. Wish to be (Past 1 Month) No 025 4:35 AM EDT Emelia Kowalski, RN 2. Non-Specific Active Suici savita Thoughts (Past 1 Month) No 01/16/2025 4:35 AM EDT Emelia Kowalski, RN 6. Suicidal Behavior (Lifetime) No 4:35 AM EDT Emelia Kowalski RN documented as of this encounter Plan of Treatment Upcoming Encounters Date Type Department Care Team (Late st Contact Info) Description 02/19/2025 8:45 AM EDT Routine Obstetrics and Gynecology - [address] [phone] Yusra Gaston, [facility] [address] [place] [address] 03/05/2025 9:00 AM EST Routine Obstetrics and Gynecology - [address] [phone] Yusra Gaston [address] 03/20/2025 8:00 AM EST Routine Obstetrics and Gynecology - [address] [phone] Otis Jacinto CN [address] [place] [address] 03/27/2025 8:00 AM EST Routine Obstetrics and Gynecology - [address] [phone] Otis Jacinto [facility] [address] [place] [address] 04/04/2025 8:30 AM EST Routine Obstetrics and Gynecology - [address] [phone] Andie Espinosa CNM [address], [place] 04/10/2025 8:00 AM EST Routine Obstetrics and Gynecology - [address] [phone] Otis Jacinto CN [address] [place], [place] 04/17/2025 8:00 AM EST Routine Obstetrics and Gynecology - [address] [phone] Otis Jacinto [address] [address] documented as of this encounter Visit Diagnoses Not on filedocumented in this encounter Additional Health Concerns Assessment Noted Time PHQ-9 Depression Total Score: 0 12/26/19 25 2:06 PM EDT documented as of this encounter Care Teams Plate Mill Hand Relationship Specialty Start Date End Date Ree Rodriguez MD [address] [place] [address] PCP - General Internal Medicine 08/25/20 documented as of this encounter
--- OUTSIDE RECORDS SUMMARY | 2025-01-30 03:26 | XMS_ITS | Clinical Summary ---
Author Organization [address] Address [address] [place] [phone] Phone Care Team Providers Care Filters Assembler Name Role Phone Ree Rodriguez MD Primary Care Provider [phone] Allergies No known active allergies Medications loratadine (CLARITIN ORAL) Take 1 Tablet by mouth daily Active PNV,calcium 72/iron,carb/foli c ( PLUS ORAL) Take 1 tablet by mouth daily Active docusate sodium (COLACE) 100 mg capsule Take 1 capsule (100 mg total) by mouth 2 (two) times a day if needed for constipation. 30 capsule 5 10/05/19 25 Active famotidine (PEPCID) 20 mg tablet Take 1 tablet (20 mg total) by mouth 2 (two) times a day. 60 tablet 2 01/17/20 25 Active ferrous gluconate (FERGON) 324 mg (38 mg iron) tablet Take 1 tablet (324 mg total) by mouth every other day. 15 each 3 01/27/20 25 Active ondansetron ODT (ZOFRAN-ODT) 4 mg disintegrating tablet Dissolve 1 tablet (4 mg total) on top of the tongue every 8 (eight) hours if needed for nausea or vomiting. 42 tablet 1 10/05/19 25 025 Discontin ued(Stop Taking at Discharge ) metroNIDAZOLE (METROGEL) 0.75 % (37.5mg/5 gram) vaginal gel Insert 1 Applicatorful into the vagina at bedtime for 5 days. 45 g 01/17/20 25 025 Discontin ued(Thera py completed ) Active Problems Problem Noted Date Diagnosed Date Anemia during in third trimester 01/26 Overview (01/26/2025): Iron Rx sent Yusra Gaston CNM Elevated glucose tolerance test 01/26/2025 Overview (01/26/2025): 3hr GTT ordered Hydronephrosis of right kidney 01/22/2025 Overview (01/22/2025): Unchanged on US from 01/16- refer to nephrology PP Right sciatic nerve pain 12/26/2024 Assessment & Plan (12/26/2024 10:34 AM EDT): Electric Plater normal changes, stretching relief measures demonstrated and adde to AVS History of migraine 10/03/2024 Assessment & Plan (12/26/2024 10:31 AM EDT): Have improved, takes Excedrin extra strength with good effect, using once every 1-2 weeks. 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 A small number of Cystic Fibrosis (CF) carriers may have mild respiratory or other CF-related symptoms. If this individual's partner is a carrier for Cystic Fibrosis, their chance to have a child with this condition is 1 in 4 (25%). Carrier screening for this individual's partner is suggested. 09/26/24 Jose Eduardo RN notified pt of results. She is aware of Horizon testing kit for FOB at desk for cystic fibrosis. 10/13- FOB testing negative 04/05 Assessment & Plan (12/26/2024 10:31 AM EDT): FOB negative care, subsequent in second tr imester 09/18/2024 Overview (01/22/2025): 1. [facility] site: Jennifer Dickn: [address] [place] [address] ([phone]) 2. Delivery site: [facility] 3. Mobile Mommas: N/A 4. Dating criteria: LMP 5. Blood type: O-Positive 6. Genetic screening: Date: 09/23/2024 Result: Panorama: Low risk Horizon: Cystic Fibrosis carrier Nuchal: Scheduled 10/01/24 @ 11am Survey: WNL MSAFP: declines 6. GBS: Date: 7. FOB name: Everton 8. Plans A. Epidural or other pain management - B. Labor support identified - C. Tdap - Date: Flu - Date: D. Breast or Bottle feed: E. Baby's name - F. Circumcision - 9. Hospital Course: Assessment & Plan (12/26/2024 10:32 AM EDT): Plan for 3rd T labs/ glucose screen and tdap next appt. Allergic rhinitis 09/26/2020 Anxiety and depression 09/26/2020 Overview (01/22/2025): EPDS- 18 at IP, N referral placed. Pt declines meds. States last on meds as a child and therapy as a teen. Denies SI/HI EPDS at 28 weeks- 7, seeing a therapist weekly and happy with this. Denies SI/HI Assessment & Plan (12/26/2024 10:31 AM EDT): [facility]- behavioral services weekly , feels good, no current meds Eczema 09/26/2020 Estimated Date of Delivery Comme nts Yes 04/15/2025 Based on last me nstrual period of 07/09/2024 (Exact Date) Resolved Problems Problem Noted Date Diagnosed Date Resolved Date 01/16/2025 01/22/2025 Spotting in 11/09/20242024 Pelvic pain 09/25/2020 12/26/2024 Overview (01/25/2024): Last Assessment & Plan: I explained to Romel that pelvic congestion syndrome is pelvic pain usually related to abnormal dilation in pelvic vessels or vulvar varicosities, which results from blood pooling in the pelvis. the diagnosis is challenging as it does not have specific diagnostic criteria and imaging studies alone are often false positives given that many women have findings on imaging, while many are not symptomatic. It seems that her pain is more likely related to her constipation based on exam today and LLQ is pretty classic for that presentation. I explained that the usual therapy would be empiric use of progestin to decrease pelvic vasodilation, which is preferred first line management, vs embolization of pelvic vessels. I recommended against any procedural intervention given not a clear diagnosis and she is being treated medically anyway with her Depo Provera. I recommended instead, she work on management of her constipation with increasing fiber and water intake. This will likely also improve her deep discomfort with intercourse if it is related. She agreed and also desired to avoid jumping to conclusions and invasive procedures as it is not very bothersome and she feels could be related to her bowels. She will follow up again if not improving with management of her constipation. Chronic cholecystitis with calculus 02/25/2014 12/26/2024 Cholelithiasis 12/10/2013 12/26/2024 Overview (01/25/2024): See 12/03/2013 Sono Impression 2 - Cholelithiasis obscuring portions of the gallbladder, which is contracted. No visible evidence of cholecystitis. - Plan referral following of child. Pain management in the interim should pt need it. Encounters Date Type Department Care Team Description 01/26/2025 Results Follow-Up [facility] - [facility] [address] [place] [phone] Yusra Gaston CNM 01/23/2025 Telephone [facility] [address] [place] [phone] Yusra Gaston CNM 01/22/2025 9:00 AM EDT Routine Obstetrics and Gynecology - [address] [phone] Yusra Gaston CNM care, subsequent in second trimester (Primary Dx); Need for tetanus, diphtheria, and acellular pertussis (Tdap) vaccine; 28 weeks gestation of ; Encounter for screening, unspecified; Screen for STD (sexually transmitted disease); Anxiety and depression; Hydronephrosis of right kidney 01/16/2025 4:56 AM EDT - 01/16/2025 9:10 AM EDT Hospital Encounter [address] [phone] Benjie Red MD de La Guardia, Alfredo, MD Abdominal pain, unspecified abdominal location (Primary Dx); 27 weeks gestation of Discharge Disposition: Home or Self Care 01/16/2025 Hospital Encounter [address] [phone] Jace Srivastava MD 12/26/2024 10:00 AM EDT Routine Obstetrics and Gynecology - [facility] [address] [facility] [place] [address] Jesica Urban CNM care, subsequent in second trimester (Primary Dx); 24 weeks gestation of ; Anxiety and depression; History of migraine; Cystic fibrosis carrier; Right sciatic nerve pain 12/11/2024 Telephone Obstetrics and Gynecology - [address] [phone] Connie Hancock RN 11/29/2024 9:06 AM EDT - 11/29/2024 10:24 AM EDT Emergency [facility] [address] [place] [phone] Dyllan Maynard MD Left leg pain (Primary Dx); Muscle tension pain Discharge Disposition: Home or Self Care 11/29/[address] [phone] Yusra Gaston CNM 11/28/2024 8:00 AM EDT Ancillary Procedure Maternal Medicine - [address] [phone] Encounter for anatomic survey; Encounter for follow-up ultrasound of anatomy; Encounter for screening for malformation 11/27/2024 10:15 AM EDT Routine Obstetrics and Gynecology - [address] [phone] Yusra Gaston CNM care, subsequent in second trimester (Primary Dx); 20 weeks gestation of 11/09/2024 8:45 AM EDT Routine Obstetrics and Gynecology - [address] [phone] Andie Espinosa CNM care, subsequent in second trimester (Primary Dx); Cystic fibrosis carrier; Anxiety and depression; Spotting in from Last 3 Months Immunizations Immunization Administration Dates Next Due DTaP (Infanrix) 6wks to less than 7yo ,09/16/1994,1993,08/25,1993 IDtF-RNI-AHP (Pentacel) 2mo to less than 5yo 06/17/1994,1993,1993,06/02 H1N1 Inj Preservative Free 03/31/2009 HPV, Quadrivalent 08/20/2008,03/19/2008,01/16/20 08 Hepatitis A Adult (Havrix; V aqta) 19yo and older 07/03/2014 Hepatitis B Pediatric (Enger ix B; Recombivax HB) to less than 20 yo 02/18/1994,1993,1993 MMR, measles mumps and rubel la Live (Priorix; M-M-R II) 12mo and older 12/05/1998,06/17/1994 Meningococcal MCV4P 07/03/2014,01/16/2008 OPV 03/25/1998, 4,1993,06/02 Tdap Tetanus diptheria acell ular pertussis (Boostrix; Adacel) 7yo and older 01/22/2025,12/10/2013,06/06/2006 Varicella live (Varivax) 12m o and older 03/31/2009,01/23/1999 Surgical History Surgery Date Site/Laterality Comments CHOLECYSTECTOMY PROCEDURE: HISTORICAL CHOLECYSTECTOMY Medical History Medical History Date Comments Cholelithiasis DX:Cholelithiasi s Allergic rhinitis 09/26/2020 DX:Allergic rh initis Anxiety disorder 09/26/2020 DX:Anxiety diso rder Chronic cholecystitis with calculus 02/25/2014 DX:Chronic cholecystitis with calculus Eczema 09/26/2020 DX:Eczema Cystic fibrosis carrier 06/20/2013 DX:Cysti c fibrosis carrier: Positive for the pathogenic variant c.1521_1523delCTT (p.[id number]) in the CFTR gene Pelvic pain 09/25/2020 DX:Pelvic pain Tobacco use 09/26/2020 DX:Tobacco use Cholelithiasis 12/10/2013 See 12/03/2013 So no Impression 2 - Cholelithiasis obscuring portions of the gallbladder, which is contracted. No visible evidence of cholecystitis. - Plan referral following of child. Pain management in the interim should pt need it. Pelvic pain 09/25/2020 Last Assessment & Plan: I explained to Romel that pelvic congestion syndrome is pelvic pain usually related to abnormal dilation in pelvic vessels or vulvar varicosities, which results from blood pooling in the pelvis. the diagnosis is challenging as it does not have specific diagnostic criteria and imaging studies alone are often false positives given that many women have findings on imaging Family History Medical History Relation Name Comments motercycle accident 2021 Father Heart disease Maternal Grandfather Cervical cancer Maternal Grandmother asth ma Asthma Mother Cervical cancer Mother Cervical cancer Other Great GMA Diabetes Paternal Grandfather Arthritis Paternal Grandmother Diabetes Paternal Grandmother Heart disease Paternal Grandmother Multiple sclerosis Paternal Grandmother Diabetes Uncle Breast cancer Neg Hx Cancer of Small Bowel Neg Hx Colon cancer Neg Hx Kidney cancer Neg Hx Ovarian cancer Neg Hx Uterine cancer Neg Hx Relation Name Status Comments Father Maternal Grandfather Alive Maternal Grandmother Alive Mother Other Great GMA Paternal Grandfather Paternal Grandmother Alive Uncle Alive paternal Social History Tobacco Use Types Packs/Day Years [...] care for your loved ones. For example, day care aide or elderly care for an older adult? [...] Orientation Straight 01/16/2025 7: 10 AM EDT Obstetrics History * This document contains information received from the source organization and may not represent a complete record from that organization. Para Term AB IAB SAB Ectopic Multiple Livin g Live Births 4 1 1 Date Outcome GA Total Labor Labor/2nd/3rd Weight Sex Type Anes PTL Kathrine A1 A5 Name Clin Term Vag-Spo nt Current Summary Episode Dates Number of Fetuses Estimated Date of Delivery 09/18/2024 - Present (01/30/2025) 1 04/15/2025 (set by Connie Hancock RN on 09/18/2024 based on Last Menstrual Period on 07/09/2024 (Exact Date)) Dating Summary Based On [place] Diff Last Menstrual Period on 07/09/2024 (Exact Date) 04/15/2025 Working Vitals Pregravid Weight Height TWG (As of 01/30/2025) Pregrav id BMI 40.8 kg (90 lb) 1.461 m (57.5 ) 11.6 kg (25 lb 9.6 oz) 19.13 Date GA Fund Present FHR Mvmt BP Weight Edema Alb Glu Ket Dil/ Eff/Sta 5 27w2d Inpatient data not displayed here. See encounter summary. Notes Progress Notes - Routine Pre ryan - 01/22/2025 - GA:28w1d 01/22/2025 - 28w1d - Yusra Gaston CNM OB Visit: Vitals BP: 113/75 Weight: 52.4 kg (115 lb 9.6 oz) Assessment Heart Rate: 150 Fundal Height (cm): 28 cm Movement: Present Vaginal Drainage Leaking Fluid: No 29 y.o. old female at 28w1d. Doing well. Appropriate FM. No LOF/VB/cramping. Her only new concern is none. Taking PNV. Was seen at [facility] on 01/16 with complaints of stomach pain, taking Famotidine with good relief. She was also found to have BV, took her last dose of meds yesterday. GBS was negative, will repeat at 36 weeks. Abd US at [facility] demonstrated right hydronephrosis, unchanged- will refer to Nephrology PP. Otherwise healthy . Her BP is reviewed and is Normal. FAS reviewed and WNL. Tdap was offered and accepted. This patient has not received Tdap during this . Given today. This patient has not received syphilis testing during this . 28 week labs ordered today, encouraged to do as soon as possible. This patient does not require a urine drug screen. Desires Tubal: NA. Signs and symptoms of labor reviewed including reasons to call triage. Problem List reviewed and updated. RTO 4 weeks. [place] Depression Scale: In the Past 7 Days I have been able to laugh and see the funny side of things.: As much as I always could I have looked forward with enjoyment to things.: As much as I ever did I have blamed myself unnecessarily when things went wrong.: Yes, some of the time I have been anxious or worried for no good reason.: Yes, sometimes I have felt scared or panicky for no good reason.: No, not at all Things have been getting on top of me.: No, most of the time I have coped quite well I have been so unhappy that I have had difficulty sleeping.: Not at all I have felt sad or miserable.: Not very often I have been so unhappy that I have been crying.: Only occasionally The thought of harming myself has occurred to me.: Never [place] Depression Scale Total: 7 [place] SCREENING CHARGE (Clinic Only): [id number] Yusra Gaston CNM on 01/22/2025 at 9:30 AM EDT 01/22/2025 - 28w1d - [facility] Stella pabon [place] Depression Scale: In the Past 7 Days I have been able to laugh and see the funny side of things.: As much as I always could I have looked forward with enjoyment to things.: As much as I ever did I have blamed myself unnecessarily when things went wrong.: Yes, some of the time I have been anxious or worried for no good reason.: Yes, sometimes I have felt scared or panicky for no good reason.: No, not at all Things have been getting on top of me.: No, most of the time I have coped quite well I have been so unhappy that I have had difficulty sleeping.: Not at all I have felt sad or miserable.: Not very often I have been so unhappy that I have been crying.: Only occasionally The thought of harming myself has occurred to me.: Never [place] Depression Scale Total: 7 [place] SCREENING CHARGE (Clinic Only): [id number] tdap given as ordered. VIS sheet given to read.Patient to remain 20 minutes after injection. Progress Notes - Routine Pre ryan - 12/26/2024 - GA:24w2d 12/26/2024 - 24w2d - Jesica Urban CNM OB Visit: Vitals BP: 110/64 (P: 89) Weight: 48.4 kg (106 lb 9.6 oz) Assessment Heart Rate: 145 Fundal Height (cm): 22 cm Movement: Present Vaginal Drainage Leaking Fluid: No 29 y.o. old female at 24w2d. Doing well. + FM. No LOF/VB/cramping. Her only new concern is right sciatic pain . Otherwise healthy . Seen in ER for calf pain. Nutrition counseling to inc Ca, Mg, K in diet.Her BP is reviewed and is Normal. She does not require a urine drug screen. Signs and symptoms of pretem labor reviewed including reasons to call triage. Problem List reviewed and updated. RTO 4 weeks. care, subsequent in second trimester (Primary) Assessment & Plan: Plan for 3rd T labs/ glucose screen and tdap next appt. 24 weeks gestation of Anxiety and depression Assessment & Plan: [facility]- behavioral services weekly , feels good, no current meds History of migraine Assessment & Plan: Have improved, takes Excedrin extra strength with good effect, using once every 1-2 weeks. Cystic fibrosis carrier Assessment & Plan: FOB negative Right sciatic nerve pain Assessment & Plan: Electric Plater normal changes, stretching relief measures demonstrated and adde to AVS Jesica Urban CNM on 12/26/2024 at 10:34 AM EDT Progress Notes - Routine Pre - 11/27/2024 - GA:20w1d 11/27/2024 - 20w1d - Yusra Gaston CNM OB Visit: Vitals BP: 109/67 Weight: (!) 45.4 kg (100 lb) Assessment Heart Rate: 150 Fundal Height (cm): 20 cm Movement: Present Vaginal Drainage Leaking Fluid: No 29 y.o. old female at 20w1d. Doing well. Good FM. Taking PNV. No LOF/VB/cramping. Her only new concern is none. Taking PNV. Otherwise healthy . Her BP is reviewed and is Normal. Aneuploidy screening reviewed; it is Normal. MSAFP deferred by patient. FAS scheduled for tomorrow. Horizon for dad was negative. She does not require a urine drug screen. TWG- 10lb. Signs and symptoms of labor reviewed including reasons to call triage. Problem List reviewed and updated. RTO 4 weeks. Yusra Gaston CNM on 11/27/2024 at 10:52 AM EDT Progress Notes - Routine Pre ryan - 11/09/2024 - GA:17w4d 11/09/2024 - 17w4d - Andie Espinosa CNM Vitals BP: 103/73 Weight: (!) 44 kg (97 lb) Assessment Heart Rate: 150 Movement: Present Vaginal Drainage Leaking Fluid: No Romel Argueta at 17w4d presents for her routine ob visit. She is taking her PNV as ordered. She denies LOF/ucs. Reports spotting, once a couple days ago and then again a week ago, light with wiping. Reports intercourse the day before the time it occurred a week ago. She denies s/s of a UTI, she denies s/s. She reports + FM. She has the following concerns none. complicated by none. Vital signs reviewed and are normal. Spec exam no bleeding noted. Moderate amount of white discharge. Problem reviewed and updated. She will RTO in 4 weeks for routine ob care or PRN. Reviewed with her s/s of labor/reasons to call triage. Anatomy scan scheduled for 11/28. Offered AFP she declines. Gc/ct and wet prep collected for the spotting. Andie Espinosa CNM Progress Notes - Initial Pre - 10/01/2024 - GA:12w0d 10/01/2024 - 12w0d - Yusra Gaston CNM OB 12 week appt IP: S: Romel is a 29 y.o. year old here for IP visit with her boyfriend Everton. This is their first baby together. She and the father of the baby are happy. Her is planned. She has had one previous - complicated by Cholelithiasis. Had her gallbladder removed after her delivery. She had 2 previous SAB last year- this has caused some increased anxiety during this . Normal PN labs, CF carrier- FOB did testing and pending. Pt has a hx of anxiety and depression, she reports no meds or therapist for many years- reports she was last on meds as a child therapy as a teen. She has good support system and uses distraction for coping skills. Accepts BHN list. Will contact insurance to see who accepts it, declines starting meds at this time. She is currently taking PNV. Patient's last menstrual period was 07/09/2024 (exact date). She is certain of her LMP with regular cycles. is currently dated by LMP only. Has NT today. She complains of rare nausea and vomiting . She denies vaginal bleeding or cramping. Flu vaccine: not indicated at today's visit S=D on Bimanual, FHT- 160 O: Blood pressure 112/66, weight (!) 42.2 kg (93 lb), last menstrual period 07/09/2024. See OB physical and labs. Vitals BP: 112/66 Weight: (!) 42.2 kg (93 lb) No results found for: ABORH Lab Results Component Value Date RH Positive 09/18/2024 A: at 12w0d weeks gestation. 1. care, subsequent in first trimester 2. Screen for STD (sexually transmitted disease) 3. Anxiety and depression 4. Positive depression screening 5. 12 weeks gestation of 6. Cystic fibrosis carrier P: Genprobe obtained today. Oriented to THoNE MG and anticipated course. Discussed collaborative practice and [facility] delivery. Reviewed healthy eating and normal weight gain in . Encouraged patient to push PO fluids. Written listed OB safe medications given. Counseled about warning signs of the first trimester and how to contact business systems consultant provider. Discussed the benefits of breast feeding and strongly encouraged to consider this. Urine drug screening ordered at today's visit. Advised that random drug screening will be performed if initial testing is positive. Counseled regarding the diagnosis of anomalies. She was offered a referral to maternal medicine for nuchal lucency/[place] testing. She completed the referral. RTO 4 weeks. The patient does not require anesthesia consult. This patient's VTE risk status is low. [place] Depression Scale: In the Past 7 Days I have been able to laugh and see the funny side of things.: Not quite so much now I have looked forward with enjoyment to things.: As much as I ever did I have blamed myself unnecessarily when things went wrong.: Yes, most of the time I have been anxious or worried for no good reason.: Yes, sometimes I have felt scared or panicky for no good reason.: Yes, sometimes Things have been getting on top of me.: Yes, most of the time I haven't been able to cope at all I have been so unhappy that I have had difficulty sleeping.: Yes, most of the time I have felt sad or miserable.: Yes, quite often I have been so unhappy that I have been crying.: Yes, quite often The thought of harming myself has occurred to me.: Never [place] Depression Scale Total: 18 Denies SI/HI, declines meds at this time but accepts BHN referral, list also given. Has good fam support and her partner is supportive. Had recent 2 SAB and this has caused increase stress this . Yusra Gaston CNM on 10/01/2024 at 11:10 AM EDT Progress Notes - Clinical Hou pport - 09/18/2024 - GA:10w1d 09/18/2024 - 10w1d - Connie Hancock RN Romel Argueta is a 29 y.o. old female at Unknown. This is Planned. The patient feels happy about the . The FOB is happy. They live together with her 10 yr old son and 2 cats. Aware of tapan litter precautions. FOB Everton this is his first child. Patient's last menstrual period was 07/09/24 (exact date)., which would make her currently 10w1d with an Estimated Date of Delivery: 04/15/25.. She is certain of her date. An ultrasound has not been ordered to confirm dating Patient has significant history of: SAVD 2013, Cholestasis in SAB x2 2023, anxiety OB Past Medical History: Have you had or do you currently have: Diabetes? No Hypertension? No Heart disease, Mitral valve Prolapse, or Rheumatic fever? No An Autoimmune disease such as Lupus or Rheumatoid Arthritis? No Epilepsy, Seizures, or Spells? No Migraine Headaches? Yes occ Stroke or loss of function or sensation? No Additional Questions: Have you ever been treated for anxiety and/or depression? Yes ,no therapy or meds Are you having problems with crying spells or loss of self-esteem? No Have you ever required psychiatric care? No Have you ever had hepatitis, liver disease or jaundice? No Have you ever been treated for blood clots in your veins, deep venous thrombosis, inflammation in the veins, thrombosis, phlebitis, pulmonary embolism or varicosities? No Have you had excessive bleeding after surgery or dental work? No Do you bleed more than other women after a cut or scratch? No Do you have a history of anemia? No Have you ever had Thyroid problems or taken Thyroid medications? No Do you have any other Endocrine Problems (ie. PCOS)? No Have you ever been in a major accident or suffered serious trauma? No Within the last year, has anyone hit, slapped, kicked or otherwise hurt you? No In the last year, has anyone forced you to have sex when you didn't want to? No Do you feel safe at home? Yes Have you ever received a blood transfusion? No Would you refuse a blood transfusion if a doctor judged to be medically necessary? No Would you rather than receive a blood transfusion? No If you answered yes to the above questions, is this for adventism reasons? N/A Do you know what your blood type is or if you are Rh Negative? yes O pos Have you ever had abnormal antibodies in your blood? no Have you ever had asthma? No Have you every had Tuberculosis? No Have you ever had any breast problems? No Have you ever breast fed? Yes 1 month Have you ever had any gynecological surgical procedures such as cervical conization, LEEP procedure, Laser treatment, cryosurgery of the cervix or dilation and curettage, etc? No Have you had any other surgical procedures? Yes Cholecystectomy 2013 Have you ever been hospitalized overnight for a non-surgical reason excluding normal delivery? No Have you ever had anesthesia complications? No Have you ever had an abnormal pap smear? No Do you have a history of abnormalties of the uterus? No Did your mother take PARKER or any other hormones when she was with you? No Did it take more than one year to become ? No Have you ever been evaluated or treated for infertility? No Is there a history of medical problems in your family which you feel might adversely affect your health or ? No Do you have any other problems we have not asked you about which you feel may be important for us to know for this ? No Do you currently have any of the following symptoms since your last menstrual period: Abdominal pain, blood in the stool or urine, chest pain, shortness of breath, coughing or vomiting up blood, your heart racing or skipping beats, nausea and/or vomiting, pain on urination, or vaginal discharge or vaginal bleeding? No Genetic Screening/Teratology Counseling- Includes patient, baby's father, or anyone in either family with: Patient's age 35 years or older as of estimated date of delivery No Thalassemia (Greek, Sammarinese, Mediterranean, or background): MCV less than 80 No Neural tube defect (Meningomyelocele, Spina bifida, or Anencephaly) No Congenital heart defect No Down syndrome No Chavez-Sachs (Ashkenazi Pentecostal, Cajun, Citizen Of [place] Trinidadian) No Geoff disease (Ashkenazi Pentecostal) No Familial dysautonomia (Ashkenazi Pentecostal) No Sickle cell disease or trait () No Hemophilia or other blood disorders No Muscular dystrophy No Cystic fibrosis No [place]'s chorea No Intellectual disability and/or autism No If yes, was the person tested for Fragile X? No Other inherited genetic or chromosomal disorder No Maternal metabolic disorder (eg. Type 1 diabetes, PKU) No Patient or baby's father had child with defects not listed above No Recurrent loss, or a stillbirth Yes 2023 Medications (including supplements, vitamins, herbs, or OTC drugs)/illicit/recreational drugs/alcohol since last menstrual period No If yes, agent(s) and strength/dosage: Any other No OB Infection History: Do you object to being tested for Hepatitis B? No Do you object to being tested for HIV? No Do you feel that you are at high risk for coming contact with the AIDS virus? No Have you ever been treated for tuberculosis? No Have you ever received the BCG vaccine? No Have you ever had a positive skin test for Tuberculosis? No Do you live with someone who has Tuberculosis? No Have you ever been exposed to Tuberculosis? No Do you have Genital Herpes? No Does your partner have Genital Herpes? No Have you had a rash or viral illness since your last period? No Have you ever had Gonorrhea, Chlamydia, Syphilis, Venereal Warts, Trichomoniasis, Pelvic Inflammatory Disease (PID) or any other sexually transmitted disease? No Do you know if you are a Group B Streptococcus Carrier? no Did you have the Chicken Pox/Varicella? no Were you vaccinated against Chicken Pox/Varicella? yes Have you had any other infectious diseases? No Romel Argueta has been instructed on the following: random urine drug screening policy and an initial urine drug screen has been ordered., She has been counseled regarding avoiding hazards, litter boxes, smoking, drug and alcohol use during Romel Argueta has also been informed of the bank boss provider recommendation for first trimester nuchal lucency testing to be performed during her . Romel Argueta has also been made aware of the time sensitive nature for this testing to be completed. . The patient now has a gestational age of Unknown. The patient would be due for this testing prior to 14 weeks gestation which would be on 10/14/24 Ethnicity Based Genetic Testing has been reviewed and the [employer] information sheet has been provided to the patient in their After Visit Summary. The patient was also advised that genetic testing may not be covered by all insurances. The patients states that they understand this information. The patient states that she had the genetic screening for Cystic Fibrosis done in the past during a previous . Results were POS carrier. The patient has agreed that she does want genetic testing for Horizon 14 The following Labs have been ordered: Obstetric Panel, HIV with verbal Consent, Hepatitis C, Varicella titer, Urine Culture, UDS, Panorama with gender, and Horizon 14 panel She is aware that her insurance may or may not cover Panorama and/or Horizon 14 test and discussed ly only de paz for test(s) - info given today in her after visit summary . She would like to proceed with testing. For Horizon Carrier Screening, if patient has [employer], [employer] or [employer] insurances: Not Applicable Electronically signed by: Connie Hancock RN 09/18/24 1:43 PM EDT Last Filed Vital Signs Vital Sign Reading Time Taken Comments Blood Pressure 113/75 01/22/2025 8:59 AM EDT Pulse 88 01/22/2025 7:00 AM EDT Temperature 36.1 C (96.9 F) 01/22/2025 9:00 AM EDT Respiratory Rate 14 01/22/2025 7:00 AM EDT Oxygen Saturation 98% 01/16/2025 5:20 AM EDT Inhaled Oxygen Concentration - - Weight 52.4 kg (115 lb 9.6 oz) 01/22/2025 8:59 A M EDT Height 146.1 cm (4' 9.5 ) 01/16/2025 5:11 AM EDT Body Mass Index 24.58 01/16/2025 5:11 AM EDT Plan of Treatment Upcoming Encounters Date Type Department Care Team (Late st Contact Info) Description 02/19/2025 8:45 AM EDT Routine Obstetrics and Gynecology [address] [phone] Yusra Gaston, [facility] [address] [place], [place] 03/05/2025 9:00 AM EST Routine Obstetrics and Gynecology - [address] [phone] Yusra Gaston, [address] 03/20/2025 8:00 AM EST Routine Obstetrics and Gynecology - [address] [phone] Otis Jacinto, [address] [address] 03/27/2025 8:00 AM EST Routine Obstetrics and Gynecology - [address] [phone] Otis Jacinto, [address] [address] 04/04/2025 8:30 AM EST Routine Obstetrics and Gynecology - [address] [phone] Andie Espinosa, [address] 04/10/2025 8:00 AM EST Routine Obstetrics and Gynecology - [address] [phone] Otis Jacinto, [address] [address] 04/17/2025 8:00 AM EST Routine Obstetrics and Gynecology - [address] [phone] Otis Jacinto, [facility] [address] [place] [address] Health Maintenance Due Date Last Done Comments COVID-19 Vaccine ( - season) 2024 Influenza Vaccine (#1) 2024 1, 03/31/2009, 03/31/2009 RSV Immunization Adult Patients (1 - Risk 1-dose series) 02/18/2025 Social Influencers of Health Screening 01/16/2026 01/16/2025 Cervical Cancer Screening: HPV 02/27/2029 02/28/2024, 07/03/2020 Cervical Cancer Screening: Pap Smear 02/27/2029 02/28/2024, 02/28/2024, 07/03/2020, Additional history exists DTaP,Tdap,and Td Vaccines (9 - Td or Tdap) 01/22/2035 01/22/2025, 12/10/2013, 06/06/2006, Additional history exists Hepatitis B Vaccines Completed 02/18/1994, 1993, 1993 HIB Vaccines Completed 06/17/1994, 05/27, 1993, Additional history exists IPV Vaccines Completed 03/25/1998, 05/27, 1993, Additional history exists HPV Vaccines Completed 08/20/2008, 02/24, 01/16/2008 Hepatitis A Vaccines Aged Out 07/03/2014 No long er eligible based on patient's age to complete this topic Meningococcal ACWY Vaccine Aged Out 07/03/2014, No longer eligible based on patient's age to complete this topic HIV Screening Completed 09/18/2024, 06/11/2013 Hepatitis C Screening Completed 09/18/2024 Depression Screening Completed 01/22/2025 Meningococcal B Vaccine Aged Out No l onger eligible based on patient's age to complete this topic Pneumococcal Vaccine: Pediatrics (0 to 5 Years) and At-Risk Patients (6 to 49 Years) Aged Out No longer eligible based on patient's age to complete this topic RSV Immunization Patients Under 20 months Aged Out No longer eligible based on patient's age to complete this topic Procedures Procedure Name Priority Date/Time Associated Diagnosis Comments GTT GESTATIONAL 1 HOUR Routine 9:48 AM EDT Encounter for screening, unspecified CBC WITH AUTO DIFFERENTIAL Routine 01/25/2025 9:48 AM EDT Encounter for screening, unspecified GLUCOSE TOLERANCE TEST, 1H GESTATION Routine 01/25/2025 9:48 AM EDT Encounter for screening, unspecified CBC AND DIFFERENTIAL Routine 01/25/2025 9:48 AM EDT Encounter for screening, unspecified TREPONEMA PALLIDUM ANTIBODY WITH REFLEX TO RPR AND PARTICLE AGGLUTINATION Routine 01/25/2025 9:48 AM EDT Encounter for screening, unspecified Screen for STD (sexually transmitted disease) CULTURE URINE Routine 01/25/2025 9:48 AM EDT care, subsequent in first trimester CULTURE URINE Routine 01/25/2025 9:48 AM EDT Encounter for screening of mother US ABDOMEN LIMITED STAT 01/16/2025 7: 47 AM EDT HEPATIC FUNCTION PANEL STAT 6:16 AM EDT CBC WITH AUTO DIFFERENTIAL STAT 01/16/2025 6:16 AM EDT CBC AND DIFFERENTIAL STAT 01/16/2025 6:16 AM EDT BASIC METABOLIC PANEL STAT 01/16/2025 6:16 AM EDT DRUG ABUSE SCREEN 8A PANEL, URINE Routine 01/16/2025 6:07 AM EDT CULTURE URINE STAT 01/16/2025 6:07 AM EDT STREP B PCR Routine 01/16/2025 6:03 AM EDT TRICHOMONAS VAGINALIS ANTIGEN STAT 01/16/2025 6:03 AM EDT CHLAMYDIA TRACHOMATIS AND NEISSERIA GONORRHOEAE PCR STAT 01/16/2025 6:03 AM EDT WET PREP, GENITAL STAT 01/16/2025 6:0 3 AM EDT FIBRONECTIN STAT 01/16/2025 6:0 2 AM EDT VAS US DUPLEX LOWER EXT VENOUS LEFT STAT 11/29/2024 9:57 AM EDT Left leg pain US OB 14+ WKS SINGLE OR FIRST GESTATION Routine 11/28/2024 8:44 AM EDT Encounter for screening for malformation Encounter for anatomic survey TRICHOMONAS VAGINALIS ANTIGEN Routine 11/09/2024 8:58 AM EDT Spotting in CHLAMYDIA TRACHOMATIS AND NEISSERIA GONORRHOEAE PCR Routine 11/09/2024 8:58 AM EDT Spotting in WET PREP, GENITAL Routine 11/09/2024 8:5 8 AM EDT Spotting in HEPATITIS C ANTIBODY Routine 09/18/2024 2:35 PM EDT Encounter for screening of mother HIV 1, 2 ANTIBODY, P24 ANTIGEN WITH REFLEX TO DIFFERENTIATION Routine 09/18/2024 2:35 PM EDT Encounter for screening of mother HPV WITH REFLEX GENOTYPE Routine 02/28/2024 2:01 PM EST Screen for STD (sexually transmitted disease) from Last 3 Months or Most Recently Relevant to Health Maintenance Results * Treponema pallidum antibody with reflex to RPR and particle agglutination (01/25/2025 9:48 AM EDT) [facility] T. Pallidum Antibodies Negative Negative LAB CHEMISTRY METHOD 01/25/2025 1:04 PM EDT [facility] Blood Venous blood specimen / Unknown Venipuncture / Unknown 01/25/2025 9:48 AM EDT 01/25/2025 9:56 AM EDT us Yusra Gaston [facility] BLOOD ORDERABLES Final Res ult Performing Organization Address [facility]/ZIP Co de Phone Number [facility] [address] [place] [address], [place] [phone] * (ABNORMAL) GTT gestational 1 hour (01/25/2025 9:48 AM EDT) Glucose, 1 HR Gestational 142(H) <140 mg/dL LAB CHEMISTRY METHOD 01/25/2025 1:33 PM EDT [facility] Blood Venous blood specimen / Unknown Venipuncture / Unknown 01/25/2025 9:48 AM EDT 01/25/2025 9:56 AM EDT Narrative [facility] - 01/25/2025 1:33 PM EDT Gestational Diabetes Challenge Reference Range: 1 hour Glucose <140 mg/dL us Yusra Gaston [facility] BLOOD ORDERABLES Final Res ult Performing Organization Address [facility] de Phone Number [facility] [address] [place] [address], [place] [phone] * (ABNORMAL) CBC auto differential (01/25/2025 9:48 AM EDT) Only the most recent of2 resultswithin the time period is included. WBC 13.7(H) 4.8 - 10.8 K/[facility] LAB HEMETOLOGY METHOD 01/25/2025 12:22 PM EDT [facility] RBC 3.70(L) 3.80 - 4.80 M/[facility] LAB HEMETOLOGY METHOD 01/25/2025 12:22 PM EDT [facility] Hemoglobin 10.8(L) 11.5 - 16.0 g/dL LAB HEMETOLOGY METHOD 01/25/2025 12:22 PM [facility] Hematocrit 33.8(L) 35.0 - 47.0 % LAB HEMETOLOGY METHOD 01/25/2025 12:22 PM [facility] MCV 92.3 79.0 - 98.0 FL LAB HEMETOLOGY METHOD 01/25/2025 12:22 PM [facility] MCH 29.5 27.0 - 32.0 pcg LAB HEMETOLOGY METHOD 01/25/2025 12:22 PM [facility] MCHC 32.0 32.0 - 37.0 g/dL LAB HEMETOLOGY METHOD 01/25/2025 12:22 PM [facility] RDW 13.2 11.0 - 15.0 % LAB HEMETOLOGY METHOD 01/25/2025 12:22 PM [facility] Platelets 272 130 - 400 K/mcL LAB HEMETOLOGY METHOD 01/25/2025 12:22 PM [facility] MPV 11.7(H) 7.0 - 11.0 FL LAB HEMETOLOGY METHOD 01/25/2025 12:22 PM [facility] NRBC 0.0 <1.0 % LAB HEMETOLOGY METHOD 01/25/2025 12:22 PM [facility] NRBC Absolute 0.00 <0.10 K/mcL LAB HEMETOLOGY METHOD 01/25/2025 12:22 PM [facility] Neutrophils Relative 77.4 % LAB HEMETOLOGY METHOD 01/25/2025 12:22 PM [facility] Lymphocytes Relative 12.4 % LAB HEMETOLOGY METHOD 01/25/2025 12:22 PM [facility] Monocytes Relative 6.6 % LAB HEMETOLOGY METHOD 01/25/2025 12:22 PM EDT [facility] Eosinophils Relative 1.5 % LAB HEMETOLOGY METHOD 01/25/2025 12:22 PM EDT [facility] Basophils Relative 0.4 % LAB HEMETOLOGY METHOD 01/25/2025 12:[facility] Immature Granulocytes Relative 1.7 % LAB HEMETOLOGY METHOD 01/25/2025 12:22 PM EDT [facility] Neutrophils Absolute 10.59(H) 1.50 - 7.00 K/mcL LAB HEMETOLOGY METHOD 01/25/2025 12:22 PM EDT [facility] Lymphocytes Absolute 1.69 1.00 - 5.00 K/mcL LAB HEMETOLOGY METHOD 01/25/2025 12:22 PM [facility] Monocytes Absolute 0.90 0.20 - 1.00 K/mcL LAB HEMETOLOGY METHOD 01/25/2025 12:22 PM [facility] Eosinophils Absolute 0.21 0.00 - 0.50 K/mcL LAB HEMETOLOGY METHOD 01/25/2025 12:22 PM [facility] Basophils Absolute 0.05 0.00 - 0.20 K/mcL LAB HEMETOLOGY METHOD 01/25/2025 12:22 PM [facility] Immature Granulocytes Absolute 0.23(H) 0.00 - 0.03 K/mcL LAB HEMETOLOGY METHOD 01/25/2025 12:22 PM T [facility] Blood Venous blood specimen / Unknown Venipuncture / Unknown 01/25/2025 9:48 AM EDT 01/25/2025 9:56 AM EDT us Yusra Gaston CNM LAB BLOOD ORDERABLES Final Res ult [facility] [address] [place] [address], [place] [phone] * Culture urine (01/25/2025 9:48 AM EDT) Only the most recent of3 resultswithin the time period is included. Culture, Urine <10,000 cfu/ml, insignificant count, no further workup. 01/26/2025 10:05 AM EDT [facility] Urine Urine specimen obtained by clean catch procedure / Unknown Non-blood Collection / Unknown 01/25/2025 9:48 AM EDT 01/25/2025 9:56 AM EDT Yusra LEE LAB MICROBIOLOGY - GENERAL ORD ERABLES Final Result [facility] [address] [place] [address], [place] [phone] * US Abdomen Limited (01/16/2025 7:47 AM EDT) Anatomical Region Laterality Modality Body Ultrasound 01/16/2025 8:39 AM EDT Impressions 01/16/2025 8:41 AM EDT Similar severe right-sided hydronephrosis. -------- FINAL REPORT -------- Dictated By: Flori Berkowitz Dictated Date: 01/16/2025 08:39 ET Assigned Physician: Flori Berkowitz Reviewed and Electronically Signed By: Flori Berkowitz Signed Date: 01/16/2025 08:41 ET Workstation ID: [id number] Transcribed By: Self Edit Transcribed Date: 01/16/2025 08:39 ET Narrative 01/16/2025 8:41 AM EDT INDICATION: Right upper quadrant/upper abdominal pain for one week FINDINGS: Ultrasound of the right upper quadrant performed. Prior relevant studies: Remote study from December 27, 2013 reviewed. Pancreas: Proximal and distal portions obscured by bowel gas with normal central pancreas. Liver: Normal in size, shape and echogenicity. No solid mass or intrahepatic ductal dilatation. Portal vein patent with hepatopedal flow. Gallbladder: Surgically absent Common bile duct: 4 mm Right kidney: Similar severe right-sided hydronephrosis when compared to study from December 2013. No significant change after voiding. Ascites: None Procedure Note Flori Berkowitz MD - 01/16/2025 INDICATION: Right upper quadrant/upper abdominal pain for one week FINDINGS: Ultrasound of the right upper quadrant performed. Prior relevant studies: Remote study from December 27, 2013 reviewed. Pancreas: Proximal and distal portions obscured by bowel gas with normalcentral pancreas. Liver: Normal in size, shape and echogenicity. No solid mass orintrahepatic ductal dilatation. Portal vein patent with hepatopedalflow. Gallbladder: Surgically absent Common bile duct: 4 mm Right kidney: Similar severe right-sided hydronephrosis when compared tostudy from December 2013. No significant change after voiding. Ascites: None IMPRESSION: Similar severe right-sided hydronephrosis. -------- FINAL REPORT -------- Dictated By: Flori Berkowitz Dictated Date: 01/16/2025 08:39 ET Assigned Physician: Flori Berkowitz Reviewed and Electronically Signed By: Flori Berkowitz Signed Date: 01/16/2025 08:41 ET Workstation ID: [id number] Transcribed By: Self Edit Transcribed Date: 01/16/2025 08:39 ET us Andie Espinosa CNM IM US PROCEDURES Final Result * (ABNORMAL) Hepatic function panel (01/16/2025 6:16 AM EDT) Total Protein 6.1 6.0 - 8.0 g/dL LAB CHEMISTRY METHOD 01/16/2025 7:35 AM EDT [facility] Albumin 2.6(L) 3.2 - 5.0 g/dL LAB CHEMISTRY METHOD 01/16/2025 7:35 AM EDT [facility] Total Bilirubin 0.2 0.0 - 1.4 mg/dL LAB CHEMISTRY METHOD 01/16/2025 7:35 AM EDT [facility] Bilirubin, Direct <0.1 0.0 - 0.3 mg/dL LAB CHEMISTRY METHOD 01/16/2025 7:35 AM T [facility] Bilirubin, Indirect LAB CHEMISTRY METHOD 01/16/2025 7:35 AM [facility] Comment:Unable to calculate Indirect Bilirubin. ALT (SGPT) 54 10 - 60 unit/L LAB CHEMISTRY METHOD 01/16/2025 7:35 AM EDT [facility] AST (SGOT) 39 10 - 42 unit/L LAB CHEMISTRY METHOD 01/16/2025 7:35 AM [facility] Alkaline Phosphatase 117 42 - 121 unit/L LAB CHEMISTRY METHOD 01/16/2025 7:35 AM [facility] Blood Venous blood specimen / Unknown Venipuncture / Unknown 01/16/2025 6:16 AM EDT 01/16/2025 6:35 AM EDT Andie Espinosa [facility] BLOOD ORDERABLES Final Resu lt [facility] [address] [place] [address], * (ABNORMAL) Basic metabolic panel (01/16/2025 6:16 AM EDT) Sodium 138 133 - 145 mmol/L LAB CHEMISTRY METHOD 01/16/2025 7:35 AM [facility] Potassium 4.2 3.5 - 5.5 mmol/L LAB CHEMISTRY METHOD 01/16/2025 7:35 AM [facility] Chloride 105 96 - 110 mmol/L LAB CHEMISTRY METHOD 01/16/2025 7:35 AM [facility] CO2 25 21 - 32 mmol/L LAB CHEMISTRY METHOD 01/16/2025 7:35 AM [facility] Anion Gap 8 3 - 11 LAB CHEMISTRY METHOD 01/16/2025 7:35 AM [facility] Glucose 72 70 - 100 mg/dL LAB CHEMISTRY METHOD 01/16/2025 7:35 AM EDT [facility] BUN 12 5 - 25 mg/dL LAB CHEMISTRY METHOD 01/16/2025 7:35 AM [facility] Creatinine 0.48(L) 0.50 - 1.10 mg/dL LAB CHEMISTRY METHOD 01/16/2025 7:35 AM EDT [facility] eGFR 130 >=60 mL/min/1. 73m2 LAB CHEMISTRY METHOD 01/16/2025 7:35 AM EDT [facility] Comment:Calculation based on the Chronic Kidney Disease Epidemiology Collaboration (CKD-EPI) equation refit without adjustment for race. BUN/Creatinine Ratio 25.0 LAB CHEMISTRY METHOD 01/16/2025 7:35 AM [facility] Calcium 9.5 8.5 - 10.5 mg/dL LAB CHEMISTRY METHOD 01/16/2025 7:35 AM T [facility] Blood Venous blood specimen / Unknown Venipuncture / Unknown 01/16/2025 6:16 AM EDT 01/16/2025 6:35 AM EDT Andie LEE LAB BLOOD ORDERABLES Final Resu lt [facility] [address] [place] [address], * Drug abuse screen 8a panel, urine (01/16/2025 6:07 AM EDT) Amphetamine Screen, Ur Negative Negative LAB CHEMISTRY METHOD 01/16/2025 7:38 AM EDT [facility] Comment:Certain OTC medicati ons containing ephedrine, phenylephrine, pseudoephedrine and phenylpropanolamine can cause false positive results. Barbiturate Screen, Ur Negative Negative LAB CHEMISTRY METHOD 01/16/2025 7:38 AM EDT [facility] Benzodiazepine Screen, Ur Negative Negative LAB CHEMISTRY METHOD 01/16/2025 7:38 AM EDT [facility] Cocaine Screen, Ur Negative Negative LAB CHEMISTRY METHOD 01/16/2025 7:38 AM EDT [facility] Opiate Screen, Ur Negative Negative LAB CHEMISTRY METHOD 01/16/2025 7:38 AM EDT [facility] Cannabinoid (THC) Screen, Ur Negative Negative LAB CHEMISTRY METHOD 01/16/2025 7:38 AM EDT [facility] Comment:Specimens from patie nts taking pantoprazole sodium (Protonix) have been shown to produce false positive results. Oxycodone Screen, Ur Negative Negative LAB CHEMISTRY METHOD 01/16/2025 7:38 AM EDT [facility] Fentanyl, Ur Negative Negative LAB CHEMISTRY METHOD 01/16/2025 7:38 AM [facility] Urine Urine specimen obtained by clean catch procedure / Unknown Non-blood Collection / Unknown 01/16/2025 6:07 AM EDT 01/16/2025 6:35 AM EDT Narrative [facility] - 01/16/2025 7:38 AM EDT Assay cutoffs: Amphetamines 1000 ng/mL Barbiturates 200 ng/mL Benzodiazepines 200 ng/mL Cocaine 300 ng/mL Fentanyl 1 ng/mL Opiates 300 ng/mL Oxycodone 100 ng/mL THC 50 ng/mL Semi-quantitative assay for screening purposes only. Unconfirmed screening result should not be used for non-medical purposes. *ALTERNATE METHOD CONFIRMATION DONE UPON REQUEST ONLY* Andie LEE LAB URINE ORDERABLES Final Resu lt [facility]) [facility] [address] [place] [address], * Trichomonas vaginalis antigen (01/16/2025 6:03 AM EDT) Only the most recent of2 resultswithin the time period is included. Trichomonas vaginalis Negative Negative 01/16/2025 7:02 AM EDT [facility] Swab Vaginal structure / Unknown Non-blood Collection / Unknown 01/16/2025 6:03 AM EDT 01/16/2025 6:35 AM EDT Andie LEE LAB MICROBIOLOGY - GENERAL ORDE RABMAYO Final Result Performing Organization Address [facility]/ZIP Co de Phone Number [facility] [address] [place] [address], [place] [phone] * Chlamydia trachomatis and Neisseria gonorrhoeae molecular study (01/16/2025 6:03 AM EDT) Only the most recent of2 resultswithin the time period is included. [facility] Neisseria gonorrhoeae PCR Negative Negative LAB MOLECULAR DIAGNOSTICS METHOD 01/16/2025 9:59 AM EDT [facility] Chlamydia trachomatis PCR Negative Negative LAB MOLECULAR DIAGNOSTICS METHOD 01/16/2025 9:59 AM EDT [facility] Cervix uteri structure / Unknown 01/16/2025 6:03 AM EDT 01/16/2025 6:35 AM EDT Andie LEE LAB MICROBIOLOGY - GENERAL GREGORYE TRISH Final Result Performing Organization Address City/[facility]/ZIP Co de Phone Number [facility] [address] [place] [address], * Strep B molecular study (01/16/2025 6:03 AM EDT) [facility] Grp B Strep PCR Not Detected Not Detected LAB MICROBIOLOGY METHOD 01/17/2025 8:44 AM EDT [facility] Swab Pooled specimen from vaginal introitus and rectal swab / Unknown Non-blood Collection / Unknown 01/16/2025 6:03 AM EDT 01/16/2025 6:35 AM EDT Andie LEE LAB BLOOD ORDERABLES Final Resu lt Performing Organization Address [facility]/ZIP Co de Phone Number [facility] [address] [place] [address], [place] [phone] * (ABNORMAL) Vaginal, Wet Mount (01/16/2025 6:03 AM EDT) Only the most recent of2 resultswithin the time period is included. Clue Cells, Wet Prep Positive(A) Negative 01/16/2025 6:52 AM EDT [facility] Yeast, Wet Prep Negative Negative 01/16/2025 6:52 AM EDT [facility] Trichomonas, Wet Prep Indeterminate Negative 01/16/2025 6:52 AM EDT [facility] Comment:Refer to Trichomonas antigen. Swab Vaginal structure / Unknown Non-blood Collection / Unknown 01/16/2025 6:03 AM EDT 01/16/2025 6:35 AM EDT Andie [facility]EE LAB MICROBIOLOGY - GENERAL ORDE RABLES Final Result Performing Organization Address [facility] de Phone Number [facility] [address] [place] [address], [place] [phone] * fibronectin (01/16/2025 6:02 AM EDT) Pathologist [facility] Fibronectin Negative Negative LAB CHEMISTRY METHOD 01/16/2025 7:18 AM EDT [facility] Vaginal Fluid Vaginal structure / Unknown Non-blood Collection / Unknown 01/16/2025 6:02 AM EDT 01/16/2025 6:35 AM EDT us Andie Espinosa CNM LAB BODY FLUIDS AND STOOLS ORDE RABLES Final Result Performing Organization Address City/[facility]/ZIP Co de Phone Number [facility] [address] [place] [address], * Vascular US Duplex Lower Extremity Venous Left (11/29/2024 9:57 AM EDT) Anatomical Region Laterality Modality Vascular, Abdomen Ultrasound 11/29/2024 10:0 0 AM EDT Impressions 11/29/2024 10:01 AM EDT No evidence of a left lower extremity deep venous thrombosis. -------- FINAL REPORT -------- Dictated By: Luca Mitchell Dictated Date: 11/29/2024 10:00 ET Assigned Physician: Luca Mitchell Reviewed and Electronically Signed By: Luca Mitchell Signed Date: 11/29/2024 10:01 ET Workstation ID: [id number] Transcribed By: Self Edit Transcribed Date: 11/29/2024 10:00 ET Narrative 11/29/2024 10:01 AM EDT PROCEDURE: Left lower extremity deep vein thrombosis study. HISTORY: pain in extremities. COMPARISON: None. TECHNIQUE: Grayscale, color Doppler, and spectral Doppler ultrasound evaluation of the deep venous structures of the left lower extremity. Augmentation and compression maneuvers were performed. FINDINGS: The deep venous structures of the left lower extremity demonstrate normal compressibility with normal color and spectral Doppler flow and a normal response to augmentation maneuvers. Procedure Note Luca Mitchell MD - 11/29/2024 PROCEDURE: Left lower extremity deep vein thrombosis study. HISTORY: pain in extremities. COMPARISON: None. TECHNIQUE: Grayscale, color Doppler, and spectral Doppler ultrasoundevaluation of the deep venous structures of the left lower extremity.Augmentation and compression maneuvers were performed. FINDINGS: The deep venous structures of the left lower extremity demonstrate normalcompressibility with normal color and spectral Doppler flow and a normalresponse to augmentation maneuvers. IMPRESSION: No evidence of a left lower extremity deep venous thrombosis. -------- FINAL REPORT -------- Dictated By: Luca Mitchell Dictated Date: 11/29/2024 10:00 ET Assigned Physician: Luca Mitchell Reviewed and Electronically Signed By: Luca Mitchell Signed Date: 11/29/2024 10:01 ET Workstation ID: [id number] Transcribed By: Self Edit Transcribed Date: 11/29/2024 10:00 ET us Soniya Connor NP CV VASCULAR PROCEDURES Final Re sult * US OB 14+ Wks Single or First Gestation (11/28/2024 8:44 AM EDT) Anatomical Region Laterality Modality Body Ultrasound 11/28/2024 8:01 AM EDT Narrative 12/01/2024 3:10 PM EDT OBSTETRICS REPORT (Signed Final 12/01/2024 03:10 pm) PATIENT INFO: ID #: [id number] : [birth year] (29 yrs)(F) Name: ROMEL ARGUETA Visit Date: 11/28/2024 08:01 am PERFORMED BY: Attending: Kelsey Skaggs MD Performed By: Jaci Wu [facility] Referred By: Yusra Gaston CNM Ref. Address: [address] [place] [address] Location: [facility] Ultrasound (OBU) SERVICE(S) PROVIDED: OB Complete >=14 weeks [address] INDICATIONS: Encounter for screening for Z36.3 malformations 20 weeks gestation of Z3A.20 TECHNIQUE/SCAN QUALITY: Technique: Transabdominal Scan Satisfactory Quality: OB HISTORY: : 4 Term: 1 Wilton: 0 SAB: 2 TOP: 0 Ectopic: 0 Livin VITAL SIGNS: Weight (lb) Height BMI 93 4'8 20.85 EVALUATION: Number Of Fetuses: 1 Heart Rate(bpm): 143 Cardiac Activity: Observed Appears regular Presentation: Cephalic Placenta Location: Posterior Appearance: Grade 1 Relation to CVX: No previa Cord Insertion: Normal appearance Amniotic Fluid CANDELARIO FV: Within Normal Limits Largest Pocket(cm) 3.8 Comment: A >2 x 2 cm pocket of fluid is noted. BIOMETRY: BPD: 48.5 mm G.Age: 20w 5d 66 % HC: 173 mm G.Age: 19w 6d 23 % AC: 159.8 mm G.Age: 21w 1d 71 % FL: 30.3 mm G.Age: 19w 3d 14 % HUM: 30.3 mm G.Age: 20w 0d 44 % CER: 20.3 mm G.Age: 19w 2d 28 % NFT: 4.08 mm NB: 6.04 mm 27 % > 1 MoM LV: 7.9 mm CM: 4.8 mm OOD: 32.6 mm G.Age: 19w 5d 49 % CI: 78.62 % 70 - 86 FL/HC: 17.5 % 16.8 - 19.8 HC/AC: 1.08 1.09 - 1.39 FL/BPD: 62.5 % FL/AC: 19.0 % 20 - 24 Est. FW: 343 gm 0 lb 12 oz 44 % GESTATIONAL AGE: LMP: 20w 2d Date: 07/09/24 NELSON: 04/15/25 U/S Today: 20w 2d NELSON: 04/15/25 Best: 20w 2d Det. By: LMP (07/09/24) NELSON: 04/15/25 STANDARD ANATOMY: Cranium: Normal appearance Cavum Septi Pellucidi: Normal appearance Ventricles: Normal appearance Choroid Plexus: Normal appearance Cerebellum: Normal appearance Posterior Fossa: Normal appearance Nuchal Fold: Normal appearance Nasal Bone: Normal appearance Face: Normal appearance Lips: Normal appearance Palate: Normal appearance Thoracic: Normal appearance Diaphragm: Normal appearance Heart: Normal appearance RVOT: Normal appearance LVOT: Normal appearance Aortic Arch: Normal appearance Ductal Arch: Normal appearance Stomach: Normal appearance Abdomen: Normal appearance Abdominal Wall: Normal appearance Cord Vessels: Normal 3-Vessel Cord Kidneys: Normal appearance Bladder: Normal appearance Spine: Normal appearance Upper Extremities: Normal Arms, Hands Lower Extremities: Normal Legs, Feet Other: Cardiac angle is 34.77 degrees CERVIX UTERUS ADNEXA: Right Ovary Size(cm) 2.95 x 2.28 x 2.28 Vol(ml): 8.03 It is found between the uterus and the pelvic sidewall. Normal in size and appearance. Left Ovary Not visualized. There are no apparent left adnexal masses. Cul De Sac There is no free fluid in the cul de sac. Adnexa Both adnexae appear unremarkable. COMMENTS: Ms. Argueta is being seen for an anatomical survey. - Her medical history is significant for anxiety/depression. She takes vitamins. - Her obstetrical history is significant for one term vaginal delivery. The was complicated by cholelithiasis in the third trimester. She had her gallbladder removed after delivery. She also reports having two first trimester miscarriages. - She had cell free DNA screening. Results were low-risk for all conditions assessed. - Ultrasound findings: The biometry and anatomical survey are appropriate for the gestational age. She declined vaginal ultrasound to assess cervical length for risk of . - The findings were conveyed to the patient by Dr. Skaggs during the ultrasound. Plan: No additional ultrasounds have been scheduled. Follow up as clinically indicated. Kelsey Skaggs MD Electronically Signed Final Report 12/01/2024 03:10 pm Procedure Note Kelsey Skaggs MD - 12/01/2024 OBSTETRICS REPORT (Signed Final 12/01/2024 03:10 pm) PATIENT INFO: ID #: [id number] : [birth year] (29 yrs)(F) Name: ROMEL ARGUETA Visit Date: 11/28/2024 08:01 am PERFORMED BY: Attending: Kelsey Skaggs MD Performed By: Jaci Wu [facility] Referred By: Yusra LEE Ref. Address: [address] [place] [address] Location: [facility] Ultrasound (OBU) SERVICE(S) PROVIDED: OB Complete >=14 weeks [address] INDICATIONS: Encounter for screening for Z36.3 malformations 20 weeks gestation of Z3A.20 TECHNIQUE/SCAN QUALITY: Technique: Transabdominal Scan Satisfactory Quality: OB HISTORY: : 4 Term: 1 Wil[place]: 0 SAB: 2 TOP: 0 Ectopic: 0 Livin VITAL SIGNS: Weight (lb) Height BMI 93 4'8 20.85 EVALUATION: Number Of Fetuses: 1 Heart Rate(bpm): 143 Cardiac Activity: Observed Appears regular Presentation: Cephalic Placenta Location: Posterior Appearance: Grade 1 Relation to CVX: No previa Cord Insertion: Normal appearance Amniotic Fluid CANDELARIO FV: Within Normal Limits Largest Pocket(cm) 3.8 Comment: A >2 x 2 cm pocket of fluid is noted. BIOMETRY: BPD: 48.5 mm G.Age: 20w 5d 66 % HC: 173 mm G.Age: 19w 6d 23 % AC: 159.8 mm G.Age: 21w 1d 71 % FL: 30.3 mm G.Age: 19w 3d 14 % HUM: 30.3 mm G.Age: 20w 0d 44 % CER: 20.3 mm G.Age: 19w 2d 28 % NFT: 4.08 mm NB: 6.04 mm 27 % > 1 MoM LV: 7.9 mm CM: 4.8 mm OOD: 32.6 mm G.Age: 19w 5d 49 % CI: 78.62 % 70 - 86 FL/HC: 17.5 % 16.8 - 19.8 HC/AC: 1.08 1.09 - 1.39 FL/BPD: 62.5 % FL/AC: 19.0 % 20 - 24 Est. FW: 343 gm 0 lb 12 oz 44 % GESTATIONAL AGE: LMP: 20w 2d Date: 07/09/24 NELSON: 04/15/25 U/S Today: 20w 2d NELSNO: 04/15/25 Best: 20w 2d Det. By: LMP (07/09/24) NELSON: 04/15/25 STANDARD ANATOMY: Cranium: Normal appearance Cavum Septi Pellucidi: Normal appearance Ventricles: Normal appearance Choroid Plexus: Normal appearance Cerebellum: Normal appearance Posterior Fossa: Normal appearance Nuchal Fold: Normal appearance Nasal Bone: Normal appearance Face: Normal appearance Lips: Normal appearance Palate: Normal appearance Thoracic: Normal appearance Diaphragm: Normal appearance Heart: Normal appearance RVOT: Normal appearance LVOT: Normal appearance Aortic Arch: Normal appearance Ductal Arch: Normal appearance Stomach: Normal appearance Abdomen: Normal appearance Abdominal Wall: Normal appearance Cord Vessels: Normal 3-Vessel Cord Kidneys: Normal appearance Bladder: Normal appearance Spine: Normal appearance Upper Extremities: Normal Arms, Hands Lower Extremities: Normal Legs, Feet Other: Cardiac angle is 34.77 degrees CERVIX UTERUS ADNEXA: Right Ovary Size(cm) 2.95 x 2.28 x 2.28 Vol(ml): 8.03 It is found between the uterus and the pelvic sidewall. Normal in size and appearance. Left Ovary Not visualized. There are no apparent left adnexal masses. Cul De Sac There is no free fluid in the cul de sac. Adnexa Both adnexae appear unremarkable. COMMENTS: Ms. Argueta is being seen for an anatomical survey. - Her medical history is significant for anxiety/depression. She takes vitamins. - Her obstetrical history is significant for one term vaginal delivery. The was complicated by cholelithiasis in the third trimester. She had her gallbladder removed after delivery. She also reports having two first trimester miscarriages. - She had cell free DNA screening. Results were low-risk for all conditions assessed. - Ultrasound findings: The biometry and anatomical survey are appropriate for the gestational age. She declined vaginal ultrasound to assess cervical length for risk of . - The findings were conveyed to the patient by Dr. Skaggs during the ultrasound. Plan: No additional ultrasounds have been scheduled. Follow up as clinically indicated. Kelsey Skaggs MD Electronically Signed Final Report 12/01/2024 03:10 pm us Yusra Gaston CNM IMG OB US PROCEDURES Final Res ult * Hepatitis C antibody (09/18/2024 2:35 PM EDT) Pathologist [facility] Hepatitis C Antibody Negative Negative LAB CHEMISTRY METHOD 09/18/2024 6:42 PM EDT [facility] Blood Venous blood specimen / Unknown Venipuncture / Unknown 09/18/2024 2:35 PM EDT 09/18/2024 2:35 PM EDT us Carolina Obrien MD LAB BLOOD ORDERABLES Final Result Performing Organization Address [facility]/ZIP Co de Phone Number [facility] [address] [place] [address], [place] [phone] * HIV 1,2 antibody, p24 antigen with reflex to differentiation (09/18/2024 2:35 PM EDT) HIV Combo AB/AG Negative Negative LAB CHEMISTRY METHOD 09/18/2024 6:43 PM EDT [facility] Blood Venous blood specimen / Unknown Venipuncture / Unknown 09/18/2024 2:35 PM EDT 09/18/2024 2:35 PM EDT Narrative [facility] - 09/18/2024 6:43 PM EDT This assay is a 4th generation assay allowing for earlier detection of HIV infection by detecting the presence of the HIV-1 p24 antigen as well as the traditional antibodies to HIV type 1 (including group O) and type 2. Use of a 4th generation assay is the current CDC recommendation for HIV screening. us Carolina Obrien MD LAB BLOOD ORDERABLES Final Result Performing Organization Address [facility] de Phone Number [facility] [address] [place] [address], * HPV with reflex genotype (02/28/2024 2:01 PM EST) HPV Negative Negative LAB MICROBIOLOGY METHOD 03/06/2024 1:57 PM EST [facility] Brushing/Spatula Cervix uteri structure / Unknown 02/28/2024 2:01 PM EST 03/05/2024 2:01 PM EST us Jenny COLUNGA LAB MOLECULAR DIAGNOSTICS OR DERABLES Final Result Performing Organization Address City/[facility]/ZIP Co de Phone Number [facility] [address] [place] [address], from Last 3 Months or Most Recently Relevant to Health Maintenance Insurance [facility] Advance Directives * Full Code - Confirmed (Latest Code Status on File) Date Activated Date Inactivated Comments 01/16/2025 5:52 AM 01/16/2025 12:28 PM This code s tatus was ascertained in the following way: Code status discussion: discussion with patient To update the patient's code status, place a code status order. Do not modify or discontinue any currently active code status orders. Care Teams Filters Assembler Relationship Specialty Start Date End Date Ree Rodriguez MD [address] [place] [id number] PCP - General Internal Medicine 08/25/20
[2025-01-30 03:45] LABS: MANUAL DIFF FLAG NO
[2025-01-30 03:46] LABS: Hematocrit 30.8 % (37.0-47.0); Hemoglobin 10.8 g/dl (12.0-16.0); Imm Gran Abs Auto 0.23 X10*3/uL (0.00-0.03); Imm Gran Pct Auto 1.7 % (0.0-0.4); Lymphocytes Absolute Auto 2.0 X10*3/uL (1.2-4.9); Mean Corpuscular HGB Conc 35.1 g/dl (31.0-35.0); Mean Corpuscular Hemoglobin 30.4 pg (27.0-33.0); Mean Corpuscular Volume 86.8 fL (80.0-98.0); NRBC Abs Auto 0.000 X10*3/uL (0.0-0.012); NRBC Pct Auto 0.0 /100WBC (0.0-0.2); Platelet Count 256 X10*3/uL (160-400); Red Blood Count 3.55 X10*6/uL (4.20-5.50); White Blood Count 13.2 X10*3/uL (4.8-10.8)
[2025-01-30 03:47] LABS: Appearance Urine Clear; Glucose Urine UA Negative (Negative); PH 6.5 (5.0-9.0); Specific Gravity - Urine 1.015 (1.005-1.025); UMIC TRIGGER UACC YES
[2025-01-30 04:04] LABS: Alanine Aminotransferase 32 U/L (0-31); Albumin Level 3.3 g/dL (3.5-5.0); Alkaline Phosphatase 133 U/L (39-117); Anion Gap 13 (12-20); Aspartate Amino Transferase 36 U/L (5-31); Blood Urea Nitrogen 10 mg/dL (9-16); Calcium 8.8 mg/dL (8.4-10.2); Carbon Dioxide 20 mmol/L (22-29); Chloride 110 mmol/L (96-108); Creatinine Clr Calc Pharmacy 118.0; Estimated Glomerular Filt Rate > 60; Potassium 4.0 mmol/L (3.3-5.1); Sodium 139 mmol/L (135-145); Total Protein 6.5 g/dL (6.5-8.0)
--- NOTE | 2025-01-30 04:27 | ED.GENADULT ---
HPI - General Adult General Chief complaint: Abdominal Pain Stated complaint: abd pain Time Seen by Provider: 01/30/25 03:54 Source: patient Limitations: no limitations History of Present Illness ED Provider: Jennifer Rubio PA-C HPI narrative: 29F at 29 weeks gestation with a past medical history of GERD presents to the ED for evaluation of epigastric pain which radiates to the back and down her right lower back. She states this has been going on for over one month, pain has intensified and become more constant. Describes it as sharp, severe, comes in waves, with associated nausea no vomiting. Not associated with meals. Hx of cholecystectomy 10+ years ago. Last BM yesterday, [place] stool of 1. Denies dysuria but endorses feeling of incomplete bladder emptying. Recently treated for BV, now endorsing change in vaginal discharge to yellow/mucusy. Recently underwent evaluation at [facility] on 01/16 for the same problem. They attributed this pain to her reflux symptoms. Patient started scheduled Pepcid and PRN Tums 2 weeks ago. States reflux has improved but epigastric pain has worsened. Related Data Previous Rx's ?Medication ?Instructions ?Recorded nitrofurantoin 100 mg PO BID 7 days #14 caps 08/23/20 monohydrate/macrocrystals 100 mg capsule (Macrobid) naproxen 500 mg tablet 500 mg PO BID PRN pain 10 days #20 08/31/21 tabs albuterol sulfate 90 mcg/actuation 1 inh inhalation QID PRN shortness 02/10/22 aerosol inhaler of breath or wheezing #6.7 grams azithromycin 250 mg tablet See Rx Instructions PO .COMPLEX #6 02/10/22 (Zithromax Z-Karlo) tabs hydrocodone-homatropine 5 mg-1.5 5 ml PO Q6H PRN cough #60 mL 02/10/22 mg/5 mL (5 mL) oral solution (Hycodan) prednisone 20 mg tablet 40 mg (2 x 20 mg) PO DAILY #10 tabs 02/10/22 triamcinolone acetonide 0.1 % 1 appl topical BID #30 grams 08/27/22 topical ointment phenazopyridine 100 mg tablet 100 mg PO TID 6 doses #6 tabs 09/28/23 sulfamethoxazole 800 1 tab PO BID #6 tabs 06/05/24 mg-trimethoprim 160 mg tablet (Bactrim DS) Allergies Allergy/AdvReac Type Severity Reaction Status Date / Time No Known Allergies (No Known Allergy Verified 01/30/25 03:14 Allergies*) Review of Systems Review of Systems: Yes all other systems are reviewed and are negative Constitutional: Constitutional: Reports chills Cardiovascular: Cardiovascular: Denies chest pain and Denies dyspnea Respiratory: Respiratory: Denies dyspnea Gastrointestinal: Gastrointestinal: Reports abdominal pain, Denies hematochezia, Reports constipation, Denies diarrhea, Reports nausea and Denies vomiting Genitourinary: Genitourinary: Denies hematuria and Denies dysuria [facility] Past Medical History Attestation statement: The following information was validated with the patient. Surgical History History of cholecystectomy Social History Social History Use of substances other than those prescribed or required for medical reasons: No Advance Directives: No Do you have a plan to hurt others: No Plan Patient : No Physical Exam ED Vital Signs: Vital Signs - 24 hr 01/30/25 03:11 01/30/25 05:07 01/30/25 05:17 Temperature 97.5 F 98.1 F 98.1 F Pulse Rate 90 69 69 Respiratory Rate 16 18 18 Blood Pressure 106/73 96/63 96/63 Pulse Oximetry 98 98 98 Oxygen Delivery Method Room Air Room Air Room Air BMI result Body Mass Index 24.9 Const General: cooperative, no acute distress, alert and awake Nutritional Appearance: average body habitus Orientation/consciousness: patient oriented x3 Resp Effort & Inspection: normal respiratory effort Auscultation: clear to auscultation bilaterally Cardio Other: Normal peripheral perfusion Rate: regular rate Rhythm: regular rhythm GI Other: Soft, nondistended, no guarding no overt pain with the palpation General: Yes CVA tenderness (right sided) Back/Spine/Pelvis Back: CVA tenderness (right sided) Skin Other: Warm dry no rash Neuro General: patient oriented x3, gait normal, no focal motor deficits and CN's II-XI intact bilaterally Psych Other: cooperative Course Course Course Narrative: I Jennifer Rubio PA-C have personally obtained the history, performed the exam and assessed the patient. Susanne MINER helped to formulate the documentation Medical Decision Making Medical Decision Making [facility] Narrative: 29F at 29 weeks gestation with a past medical history of GERD presents to the ED for evaluation of epigastric pain which radiates to the back and down her right lower back. She states this has been going on for over one month, pain has intensified and become more constant. Describes it as sharp, severe, comes in waves, with associated nausea no vomiting. Not associated with meals. Hx of cholecystectomy 10+ years ago. Last BM yesterday, [place] stool of 1. Denies dysuria but endorses feeling of incomplete bladder emptying. Recently treated for BV, now endorsing change in vaginal discharge to yellow/mucusy. Recently underwent evaluation at [facility] on 01/16 for the same problem. They attributed this pain to her reflux symptoms. Patient started scheduled Pepcid and PRN Tums 2 weeks ago. States reflux has improved but epigastric pain has worsened. I've considered the following diagnoses: aortic dissection, nephrolithiasis, GERD, UTI, pyelonephritis. Urine not infected, no blood. Aortic dissection not likely in the setting of month long symptoms and absence of HTN. Plan: Vaginal self swab pending. Given nature of patient's symptoms, it sounds as if she is constipated. She is complaining of increased urinary frequency as if she can not fully void, this would happen with her constipation, and simply from being . Her gallbladder is absent, she just had another repeat ultrasound of the upper abdomen at [facility] it was negative. She is also followed up with her disbursing officer who advised to keep managing her reflux symptoms. I am suggesting she implement a more aggressive bowel regimen, that she needs to follow up with her disbursing officer, they can order imaging in the way of an MRI as an outpatient if they feel necessary. Overall, I feel her symptoms are consistent with related symptoms, nothing acute. I have interpreted the following tests: UA, CBC, CMP Labs: Slight leukocytosis, not anemic, no electrolyte abnormality, urine not infected Differential Diagnosis Differential Diagnoses: The differential diagnosis associated with the presentation includes See medical decision-making Admission/Observation Consideration of admission/observation: Escalation of care including admission/observation considered Not applicable Lab Data [facility] Lab Attestation statement: I reviewed the patient's lab results. 01/30/25 03:40 01/30/25 03:40 Labs: Lab Results 01/30/25 Range/Units 03:40 WBC 13.2 H (4.8-10.8) X10*3/uL RBC 3.55 L (4.20-5.50) X10*6/uL Hgb 10.8 L (12.0-16.0) g/dl Hct 30.8 L (37.0-47.0) % MCV 86.8 (80.0-98.0) fL MCH 30.4 (27.0-33.0) pg MCHC 35.1 H (31.0-35.0) g/dl RDW 13.0 (11.0-16.0) % Plt Count 256 (160-400) X10*3/uL MPV 10.8 (9.4-12.3) fL Immature Gran % (Auto) 1.7 H (0.0-0.4) % Neut % (Auto) 71.6 (45-73) % Lymph % (Auto) 15.4 L (20-40) % [place] % (Auto) 8.6 (2-11) % Eos % (Auto) 2.2 (0-4) % Baso % (Auto) 0.5 (0-2) % Lymph # (Auto) 2.0 (1.2-4.9) X10*3/uL [place] # (Auto) 1.1 (0.1-1.2) X10*3/uL Eos # (Auto) 0.3 (0.0-0.4) X10*3/uL Baso # (Auto) 0.1 (0.0-0.2) X10*3/uL Abs Immat Gran (auto) 0.23 H (0.00-0.03) X10*3/uL Absolute Neuts (auto) 9.5 H (2.0-8.3) x10*3/uL Absolute Nucleated RBC 0.000 (0.0-0.012) X10*3/uL Nucleated RBC % (auto) 0.0 (0.0-0.2) /100WBC Sodium 139 (135-145) mmol/L Potassium 4.0 (3.3-5.1) mmol/L Chloride 110 H (96-108) mmol/L Carbon Dioxide 20 L (22-29) mmol/L Anion Gap 13 (12-20) BUN 10 (9-16) mg/dL Creatinine 0.48 L (0.5-1.4) mg/dL Estim Creat Clear Calc 118.0 Estimated GFR > 60 Fasting Glucose 84 (60-99) mg/dL Calcium 8.8 (8.4-10.2) mg/dL Total Bilirubin 0.2 (0.0-1.0) mg/dL AST 36 H (5-31) U/L ALT 32 H (0-31) U/L Alkaline Phosphatase 133 H (39-117) U/L Total Protein 6.5 (6.5-8.0) g/dL Albumin 3.3 L (3.5-5.0) g/dL Urine Color Yellow Urine Appearance Clear Urine pH 6.5 (5.0-9.0) Ur Specific [place] 1.015 (1.005-1.025) Urine Protein Negative (Neg-Trace) mg/dL Urine Glucose (UA) Negative (Negative) mg/dL Urine Ketones Negative (Negative) mg/dL Urine Blood Negative (Negative) Urine Nitrite Negative (Negative) Ur Leukocyte Esterase Trace H (Negative) Urine RBC 0-2 (0-2) /HPF Urine WBC 0-5 (0-5) /HPF Ur Squamous Epith Cells 6-10 (0-2) /HPF Urine Bacteria 1+ (None Seen) Hyaline Casts 0-2 (0-2) /LPF Discharge Plan Discharge Clinical Impression: Constipation Patient Disposition: Home, Self-Care Instructions: Constipation (ED) Additional Instructions: All of your screening labs thus far are normal. Your urine is not infected. You have a vaginal swab pending, I will not result tonight. You will be contacted by someone at the facility with the results if you require treatment, if the swab is negative you will not be contacted. You can also access your patient portal for results. I do believe your constipation is the cause of your discomfort. Increase the Colace to twice a day, use [id number] milk of magnesia,30 ml twice a day, until your bowel habits self regulate. Continue to follow up with your disbursing officer for your ongoing discomfort, you may be uncomfortable for the duration of your . If they deem necessary, they can order an MRI of the abdomen as an outpatient. Prescriptions: No Action nitrofurantoin monohyd/m-cryst [Macrobid] 100 mg capsule 100 mg PO BID 7 Days Qty: 14 0RF Rx Instructions: must administer with a meal/food naproxen 500 mg tablet 500 mg PO BID PRN (Reason: pain) 10 Days Qty: 20 0RF prednisone 20 mg tablet 40 mg PO DAILY Qty: 10 0RF azithromycin [Zithromax Z-Karlo] 250 mg tablet See Rx Instructions .ROUTE .COMPLEX Qty: 6 0RF Rx Instructions: take 500 mg today (day 1), then 250 mg for 4 days (days 2-5) albuterol sulfate 90 mcg/actuation HFA aerosol inhaler 1 inh inhalation QID PRN (Reason: shortness of breath or wheezing) Qty: 6.7 0RF hydrocodone-homatropine [Hycodan] 5-1.5 mg/5 mL (5 mL) syrup 5 ml PO Q6H PRN (Reason: cough) Qty: 60 0RF Rx Instructions: Partial Fill upon patient request. sulfamethoxazole-trimethoprim [Bactrim DS] 800-160 mg tablet 1 tab PO BID Qty: 6 0RF phenazopyridine 100 mg tablet 100 mg PO TID Qty: 6 0RF triamcinolone acetonide 0.1 % ointment 1 appl topical BID Qty: 30 1RF Interventions: ED Discharge Assessment Last Done: 01/30/25 05:17 Discharge Date/Time: 01/30/25 05:18 Print Language: Sudanese
[2025-01-30 05:07] VITALS: BP 96/63; PULSE 69; RESP 18; TEMP 36.7; O2SAT 98
[2025-01-30 05:17] VITALS: BP 96/63; PULSE 69; RESP 18; TEMP 36.7; O2SAT 98
[2025-01-30 09:45] LABS: Bacterial Vaginosis PCR POSITIVE (Negative); Candida Group PCR NOT DETECTED (Not Detect); Candida glab krusei PCR NOT DETECTED (Not Detect); Trichomonas vaginalis PCR NOT DETECTED (Not Detect)
== END 2025-01-30 05:18 | disposition home or self-care (01) ==
PROVIDERS: Emergency Provider Emergency Medicine
DX: O99.613 Diseases of the digestive system complicating pregnancy, third trimester (principal); K92.89 Other specified diseases of the digestive system; K59.00 Constipation, unspecified; Z87.19 Personal history of other diseases of the digestive system
CPT/HCPCS: 36415; 80053; 81001; 81515; 85025; 99283; 99284